=== PATIENT | female | born 1935 | race Hispanic/Latino ===

== ENCOUNTER 2017-09-22 13:16 | Emergency (ER) | payer MEDICARE, OTHER ==
[2017-09-22 13:24] VITALS: BP 158/77; PULSE 83; RESP 16; TEMP 98.1; O2SAT 95
--- NOTE | 2017-09-22 15:31 | ED PDOC ---
Lower Extremity Pain/Injury Time Seen by Provider: 09/22/17 13:36 Chief Complaint (Nursing): Lower Extremity Problem/Injury Chief Complaint (Provider): Right knee pain History Per: Patient History/Exam Limitations: no limitations Onset/Duration Of Symptoms: Days Current Symptoms Are (Timing): Still Present Severity: Moderate Pain Scale Rating Of: 5 Additional Complaint(s): Pt states a month ago she was walking down the steps and had a sharp pain in the right knee. PT states she was still able to walk and it got better. Pt states the same thing happened last night but now she cannot weight bear. Pt states it is not because of the pain but because her knee feels weak. Denies numbness/tingling. PT took aleve at home last night and states it didn't help much but she does not want anything in ER. Past Medical History Vital Signs: Last Vital Signs Temp 98.1 F 09/22/17 13:22 Pulse 83 09/22/17 13:22 Resp 16 09/22/17 13:22 BP 158/77 H 09/22/17 13:22 Pulse Ox 95 09/22/17 13:22 - Medical History PMH: Hypercholesterolemia Denies: Chronic Kidney Disease - Family History Family History: States: Unknown Family Hx - Home Medications Home Medications: Ambulatory Orders Medication Instructions Recorded Rosuvastatin Calcium [Crestor] 1 tab PO DAILY 07/06/17 - Allergies Allergies/Adverse Reactions: Allergies Allergy/AdvReac Type Severity Reaction Status Date / Time No Known Allergies Allergy Verified 09/22/17 13:21 - ECG O2 Sat by Pulse Oximetry: 95 Disposition - Clinical Impression Clinical Impression: Arthritis of knee - Patient ED Disposition Is Patient to be Admitted: No Counseled Patient/Family Regarding: Diagnosis, Need For Followup - Disposition Referrals: Christophe Varghese III, MD [Staff Provider] - Disposition: Routine/Home Disposition Time: 15:29 Condition: GOOD Instructions: Arthritis (ED)
--- NOTE | 2017-09-22 19:32 | RAD ---
PROCEDURE: Right Knee Radiographs. HISTORY: pain COMPARISON: None. FINDINGS: BONES: No acute fracture or destructive bony lesion identified. JOINTS: Joint space narrowing, articular cortical sclerosis and osteophyte formation are identified in all 3 compartments compatible osteoarthritis. No dislocation or subluxation. JOINT EFFUSION: None. OTHER FINDINGS: None. IMPRESSION: Osteoarthritis right knee, tricompartmental. No acute fracture or dislocation identified.
== END 2017-09-22 17:26 | disposition home or self-care (01) ==
LOC: H.ER 13:16
DX: M17.11 Unilateral primary osteoarthritis, right knee (principal); E78.00 Pure hypercholesterolemia, unspecified

== ENCOUNTER 2017-12-24 16:14 | Inpatient (IN) | payer MEDICARE, OTHER ==
--- NOTE | 2017-12-24 17:00 | ED PDOC ---
HPI: Trauma/Fall - HPI Time Seen by Provider: 12/24/17 16:32 Chief Complaint (Nursing): Trauma Chief Complaint (Provider): Trauma History Per: Patient History/Exam Limitations: no limitations Onset/Duration Of Symptoms: Days (x1) Additional Complaint(s): 82 y/o female with a pmhx of high cholesterol, who presents to the ED for evaluation s/p fall prior to arrival. Patient states she tripped on a step at home and fell on her right side with most of her weight landing on her right elbow. She says the pain is constant, sharp, exacerbated by movement of the elbow, and associated with swelling and states she iced it before arrival. Patient also reports right shoulder and right forehead pain. Denies LOC, numbness, focal weakness, or other injuries. PMD: Dr. Vasquez Past Medical History Reviewed: Historical Data, Nursing Documentation, Vital Signs Vital Signs: Last Vital Signs Temp 98.8 F 12/24/17 16:15 Pulse 88 12/24/17 16:15 Resp 18 12/24/17 16:15 BP 162/84 H 12/24/17 16:15 Pulse Ox 99 12/24/17 16:15 - Medical History PMH: Hypercholesterolemia Denies: Chronic Kidney Disease - Surgical History Other surgeries: Cataracts, left elbow surgery - Family History Family History: States: Unknown Family Hx - Social History Current smoker - smoking cessation education provided: No Alcohol: None - Home Medications Home Medications: Ambulatory Orders Medication Instructions Recorded Rosuvastatin Calcium [Crestor] 1 tab PO DAILY 07/06/17 - Allergies Allergies/Adverse Reactions: Allergies Allergy/AdvReac Type Severity Reaction Status Date / Time No Known Allergies Allergy Verified 09/22/17 13:21 Review of Systems ROS Statement: Except As Marked, All Systems Reviewed And Found Negative Musculoskeletal: Positive for: Shoulder Pain, Arm Pain Neurological: Positive for: Headache. Negative for: Weakness, Numbness Physical Exam - Reviewed Nursing Documentation Reviewed: Yes Vital Signs Reviewed: Yes - Physical Exam Appears: Positive for: Non-toxic, In Acute Distress (mild painful distress) Head Exam: Positive for: NORMOCEPHALIC. Negative for: ATRAUMATIC (subtle erythema to right eyebrow and forehead, no hematoma) Skin: Positive for: Warm, Dry Eye Exam: Positive for: EOMI, PERRL ENT: Negative for: Pharyngeal Erythema, Tonsillar Exudate Neck: Positive for: Painless ROM, Supple Cardiovascular/Chest: Positive for: Regular Rate, Rhythm. Negative for: Murmur Respiratory: Positive for: Normal Breath Sounds. Negative for: Wheezing Gastrointestinal/Abdominal: Positive for: Soft. Negative for: Tenderness Back: Positive for: Normal Inspection. Negative for: Decreased ROM Extremity: Positive for: Normal ROM (right elbow held in flexion, able to extend and flex right elbow however extension elicits pain, right shoulder full ROM), Swelling (diffuse edema of the right elbow with hematoma and superficial abrasions, hemostatic), Other (RUE distal neurovascular intact; right shoulder no swelling or tenderness) Lymphatic: Negative for: Adenopathy Neurologic/Psych: Positive for: Alert. Negative for: Motor/Sensory Deficits - ECG O2 Sat by Pulse Oximetry: 99 (RA) Pulse Ox Interpretation: Normal Medical Decision Making Medical Decision Making: Time: 16:40 Initial Impression: Head injury and right elbow injury s/p fall. Differential diagnoses include, but are not limited to elbow fracture, elbow contusion, shoulder strain, and traumatic brain injury Plan: --CT Head w/o contrast --Morphine 2mg IM --Tylenol 975mg PO --X-Ray right elbow --X-Ray right shoulder --Reevaluation Accession No. : [id number] Patient Name / ID : ARETHA LAN / [id number] Exam Date : 12/24/2017 16:54:45 ( Approved ) Study Comment : Sex / Age : F / 82Y Creator : derik zhang Dictator : Randy Cabello MD Web Content Director : Agent Producer : Randy Cabello MD Approver2 : Report Date : 12/24/2017 17:14:29 My Comment : PROCEDURE: Radiographs of the right elbow. HISTORY: right shoulder pain s/p fall COMPARISON: No prior. FINDINGS: BONES: Comminuted fracture of the proximal ulna with avulsion of the olecranon JOINTS: Normal. No osteoarthritis. SOFT TISSUES: Soft tissue swelling attests to the acuity of the fracture. JOINT EFFUSION: None OTHER FINDINGS: None. IMPRESSION: Acute and comminuted fracture of the proximal ulna. Accession No. : [id number] Patient Name / ID : ARETHA LAN / [id number] Exam Date : 12/24/2017 17:17:12 ( Approved ) Study Comment : Sex / Age : F / 82Y Creator : Randy Cabello MD Dictator : Randy Cabello MD Web Content Director : Agent Producer : Randy Cabello MD Approver2 : Report Date : 12/24/2017 18:08:01 My Comment : PROCEDURE: CT HEAD WITHOUT CONTRAST. HISTORY: head injury COMPARISON: 08/14/2014 TECHNIQUE: Axial computed tomography images were obtained through the head/brain without intravenous contrast. Coronal and sagittal reconstructed images. Radiation dose: Total exam DLP = 739.31 mGy-cm. This CT exam was performed using one or more of the following dose reduction techniques: Automated exposure control, adjustment of the mA and/or kV according to patient size, and/or use of iterative reconstruction technique. FINDINGS: HEMORRHAGE: No intracranial hemorrhage. BRAIN: No mass effect or edema. No atrophy or chronic microvascular ischemic changes. VENTRICLES: Unremarkable. No hydrocephalus. CALVARIUM: Unremarkable. PARANASAL SINUSES: Unremarkable as visualized. No significant inflammatory changes. MASTOID AIR CELLS: Unremarkable as visualized. No inflammatory changes. OTHER FINDINGS: None. IMPRESSION: No acute intracranial abnormalities. No significant findings to account for the clinical presentation. No significant interval change compared to the prior examination(s). 6p JAZMÍN Guzman. Pt will be splinted and admitted to PMD Dr Vasquez. JAZMÍN Smith resident admitting for Dr Vasquez. JAZMÍN pt and family findings and plan of care. Scribe Attestation: Documented by Mendez Jaimes, acting as a scribe for Ava Mondragon MD. Provider Scribe Attestation: All medical record entries made by the Scribe were at my direction and personally dictated by me. I have reviewed the chart and agree that the record accurately reflects my personal performance of the history, physical exam, medical decision making, and the department course for this patient. I have also personally directed, reviewed, and agree with the discharge instructions and disposition. Disposition - Clinical Impression Clinical Impression: Displaced fracture of proximal end of ulna Counseled Patient/Family Regarding: Studies Performed, Diagnosis - Disposition Disposition Time: 18:00 Condition: FAIR Forms: [employer] ([place]) - Pt Status Changed To: Hospital Disposition Of: Inpatient - Admit Certification Admit to Inpatient:: After my assessment, the patient will require hospitalization for at least two midnights. This is because of the severity of symptoms shown, intensity of services needed, and/or the medical risk in this patient being treated as an outpatient. - POA Present On Arrival: Falls Or Trauma
--- NOTE | 2017-12-24 17:58 | RAD ---
PROCEDURE: Radiographs of the right elbow. HISTORY: right shoulder pain s/p fall COMPARISON: No prior. FINDINGS: BONES: Comminuted fracture of the proximal ulna with avulsion of the olecranon JOINTS: Normal. No osteoarthritis. SOFT TISSUES: Soft tissue swelling attests to the acuity of the fracture. JOINT EFFUSION: None OTHER FINDINGS: None. IMPRESSION: Acute and comminuted fracture of the proximal ulna.
--- NOTE | 2017-12-24 17:59 | RAD ---
PROCEDURE: Radiographs of the Right Shoulder HISTORY: RIGHT elbow pain s/p fall COMPARISON: No prior. FINDINGS: BONES: Normal. No fracture. JOINTS: Preserved glenohumeral relationship, acromioclavicular degenerative change: Moderate SOFT TISSUES: Normal. OTHER FINDINGS: None. IMPRESSION: No acute findings related to/accounting for the clinical presentation.
--- NOTE | 2017-12-24 18:09 | CT ---
PROCEDURE: CT HEAD WITHOUT CONTRAST. HISTORY: head injury COMPARISON: 08/14/2014 TECHNIQUE: Axial computed tomography images were obtained through the head/brain without intravenous contrast. Coronal and sagittal reconstructed images. Radiation dose: Total exam DLP = 739.31 mGy-cm. This CT exam was performed using one or more of the following dose reduction techniques: Automated exposure control, adjustment of the mA and/or kV according to patient size, and/or use of iterative reconstruction technique. FINDINGS: HEMORRHAGE: No intracranial hemorrhage. BRAIN: No mass effect or edema. No atrophy or chronic microvascular ischemic changes. VENTRICLES: Unremarkable. No hydrocephalus. CALVARIUM: Unremarkable. PARANASAL SINUSES: Unremarkable as visualized. No significant inflammatory changes. MASTOID AIR CELLS: Unremarkable as visualized. No inflammatory changes. OTHER FINDINGS: None. IMPRESSION: No acute intracranial abnormalities. No significant findings to account for the clinical presentation. No significant interval change compared to the prior examination(s).
[2017-12-24 19:05] LABS: BASO # 0.1 K/uL (0.0-0.2); BASO % 0.9 % (0.0-2.0); EOS # 0.1 K/uL (0.0-0.7); EOS % 1.5 % (0.0-4.0); HEMOGLOBIN 10.9 g/dL (12.0-16.0); LYMPH # 1.6 K/uL (1.0-4.3); LYMPH % 17.8 % (20.0-40.0); MEAN CELL VOLUME 85.1 fl (81.0-99.0); MEAN CORPUSCULAR HEMOGLOBIN 27.8 pg (27.0-31.0); MEAN CORPUSCULAR HGB CONC 32.6 g/dL (33.0-37.0); MEAN PLATELET VOLUME 9.2 fl (7.2-11.7); MONO # 0.6 K/uL (0.0-0.8); MONO % 6.2 % (0.0-10.0); NEUT # 6.5 K/uL (1.8-7.0); NEUT % 73.6 % (50.0-75.0); RBC 3.93 Mil/uL (3.80-5.20); RED CELL DISTRIBUTION WIDTH 15.6 % (11.5-14.5); WHITE BLOOD COUNT 8.9 K/uL (4.8-10.8)
[2017-12-24 19:10] LABS: INR 1.3 (0.9-1.2); PARTIAL THROMBOPLASTIN TIME 35.4 Seconds (25.6-37.1)
[2017-12-24 19:15] LABS: ALBUMIN 4.1 g/dL (3.5-5.0); ALT/SGPT 23 U/L (9-52); AST/SGOT 35 U/L (14-36); BLOOD UREA NITROGEN 33 mg/dl (7-17); CALCIUM 9.3 mg/dL (8.4-10.2); GFR AFRICAN-AMERICAN > 60; GFR NON-AFRICAN AMERICAN > 60
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
[2017-12-24] MEDS ORDERED: Oxycodone/Acetaminophen 5/325 mg Tab PO PRN (20:14)
[2017-12-24 20:53] LABS: SQUAMOUS EPITHIAL 2 /hpf (0-5); URINE BACTERIA RARE (<OCC); URINE BILIRUBIN NEGATIVE (NEGATIVE); URINE BLOOD NEGATIVE (NEGATIVE); URINE CLARITY SLIGHTY-CLOUDY (Clear); URINE COLOR YELLOW (YELLOW); URINE GLUCOSE (UA) NEG (Normal); URINE LEUKOCYTE ESTERASE MOD Leu/uL (Negative); URINE PROTEIN NEGATIVE (NEGATIVE); URINE UROBILINOGEN 0.2-1.0 mg/dL (0.2-1.0)
[2017-12-25 06:59] LABS: INR 1.4 (0.9-1.2); PARTIAL THROMBOPLASTIN TIME 33.6 Seconds (25.6-37.1); PROTHROMBIN TIME 15.1 Seconds (9.8-13.1)
[2017-12-25 07:00] LABS: ALB/GLOB RATIO 0.9 (1.0-2.1); ALBUMIN 3.7 g/dL (3.5-5.0); ALT/SGPT 27 U/L (9-52); AST/SGOT 31 U/L (14-36); BASO % 0.5 % (0.0-2.0); BLOOD UREA NITROGEN 22 mg/dl (7-17); CALCIUM 9.4 mg/dL (8.4-10.2); EOS # 0.2 K/uL (0.0-0.7); EOS % 2.1 % (0.0-4.0); GFR AFRICAN-AMERICAN > 60; GFR NON-AFRICAN AMERICAN > 60; HEMOGLOBIN 10.6 g/dL (12.0-16.0); LYMPH # 1.5 K/uL (1.0-4.3); LYMPH % 18.1 % (20.0-40.0); MEAN CELL VOLUME 85.8 fl (81.0-99.0); MEAN CORPUSCULAR HEMOGLOBIN 27.8 pg (27.0-31.0); MEAN CORPUSCULAR HGB CONC 32.5 g/dL (33.0-37.0); MEAN PLATELET VOLUME 9.7 fl (7.2-11.7); MONO # 0.6 K/uL (0.0-0.8); MONO % 6.8 % (0.0-10.0); NEUT # 5.9 K/uL (1.8-7.0); NEUT % 72.5 % (50.0-75.0); NRBC % 0.2 % (0.0-0.0); RBC 3.81 Mil/uL (3.80-5.20); RED CELL DISTRIBUTION WIDTH 15.6 % (11.5-14.5); WHITE BLOOD COUNT 8.2 K/uL (4.8-10.8)
--- NOTE | 2017-12-25 08:25 | RAD ---
HISTORY: Fall COMPARISON: 07/08/2017. FINDINGS: LUNGS: The lungs are well inflated. There is linear scarring in the right lower lobe. No focal consolidation PLEURA: No significant pleural effusion identified, no pneumothorax apparent. CARDIOVASCULAR: Normal. OSSEOUS STRUCTURES: No significant abnormalities. VISUALIZED UPPER ABDOMEN: Normal. OTHER FINDINGS: Again seen are multiple surgical clips in the right axilla. . IMPRESSION: No active pulmonary disease. No acute findings.
[2017-12-25] MEDS ORDERED: Enoxaparin 40 mg Syringe SC SCH (09:00)
--- NOTE | 2017-12-25 09:09 | CP.PCM.PN ---
<Herlinda Alston - Last Filed: 12/25/17 10:02> Subjective - Date & Time of Evaluation Date of Evaluation: 12/25/17 Time of Evaluation: 07:20 - Subjective Subjective: Patient seen and examined this morning at bedside during rounding, reports feeling better, states minimal pain in her R shoulder and elbow that is well controlled with medications. Afebrile, no chest pain, sob, headaches, blurred vision, dizziness. No urinary symptoms. Objective - Vital Signs/Intake and Output Vital Signs (last 24 hours): Temp Pulse Resp BP Pulse Ox 98.0 F 83 18 138/79 94 L 12/25/17 08:18 12/25/17 08:18 12/25/17 08:18 12/25/17 08:18 12/25/17 08:18 - Medications Medications: Current Medications Acetaminophen (Tylenol 325mg Tab) 650 mg PO Q6 PRN PRN Reason: Pain, Mild (1-3) Acetaminophen (Tylenol 325mg Tab) 650 mg PO Q6 PRN PRN Reason: Fever >100.4 F Atorvastatin Calcium (Lipitor) 10 mg PO DAILY SELINA Morphine Sulfate (Morphine) 2 mg IVP Q4 PRN PRN Reason: Pain, severe (8-10) Ondansetron HCl (Zofran Inj) 4 mg IVP Q6 PRN PRN Reason: Nausea/Vomiting Oxycodone/Acetaminophen (Percocet 5/325 Mg Tab) 1 tab PO Q4 PRN PRN Reason: Pain, moderate (4-7) Stop: 12/27/17 20:15 - Labs Labs: 12/25/17 05:47 12/25/17 05:47 PT 15.1 Seconds (9.8-13.1) H 12/25/17 05:47 INR 1.4 (0.9-1.2) H 12/25/17 05:47 APTT 33.6 Seconds (25.6-37.1) 12/25/17 05:47 - Constitutional Appears: No Acute Distress - Head Exam Head Exam: NORMAL INSPECTION - Eye Exam Eye Exam: EOMI, PERRL - Respiratory Exam Respiratory Exam: Clear to Ausculation Bilateral, NORMAL BREATHING PATTERN - GI/Abdominal Exam GI & Abdominal Exam: Soft, Normal Bowel Sounds. absent: Distended, Tenderness - Extremities Exam Additional comments: R arm splint noted, mild swelling on R hand. - Neurological Exam Neurological Exam: Alert, Awake, Oriented x3 - Skin Skin Exam: Dry, Warm Assessment and Plan - Assessment and Plan (Free Text) Assessment: 82 yo F patient with PMhx/o Right breast cancer, s/p mastectomy 22 years ago, and hyperlipidemia admitted for right elbow fracture. 1- Right elbow fracture - s/p fall at home - XR right elbow: Acute and comminuted fracture of the proximal ulna. - Dr Varghese Ortho on board: possible surgery after medical clearance, recs appreciated. -Cardio Dr Monterroso input appreciated: - Pt cleared for surgery. - Right Shoulder XR: normal - CXR no active pulmonary disease. - Patient hemodynamically stable, cleared for surgery. 2- Fall at home - With secondary right elbow fracture, shoulder contusion and forehead contusion - CT head w/o contrast: No acute intracranial abnormalities. No significant findings to account for the clinical presentation. No significant interval change compared to the prior examination(s). 3- Hyperlipidemia - continue Crestor 4- DVT Prophylaxis - scd: waiting surgery. <Felix Vasquez - Last Filed: 12/28/17 06:46> Objective - Vital Signs/Intake and Output Vital Signs (last 24 hours): Temp Pulse Resp BP Pulse Ox 98.8 F 92 H 95 H 133/70 99 12/28/17 05:00 12/28/17 05:00 12/28/17 05:00 12/28/17 05:00 12/28/17 01:00 Intake and Output: 12/27/17 12/28/17 18:59 06:59 Intake Total 1000 Balance 1000 - Medications Medications: Current Medications Acetaminophen (Tylenol 325mg Tab) 650 mg PO Q6 PRN PRN Reason: Pain, Mild (1-3) Acetaminophen (Tylenol 325mg Tab) 650 mg PO Q6 PRN PRN Reason: Fever >100.4 F Atorvastatin Calcium (Lipitor) 10 mg PO DAILY@1700 [facility] Last Admin: 12/27/17 16:41 Dose: 10 mg Heparin Sodium (Porcine) (Heparin) 5,000 units SC Q12 SELINA PRN Reason: Protocol Last Admin: 12/27/17 21:12 Dose: 5,000 units Morphine Sulfate (Morphine) 2 mg IVP Q4 PRN PRN Reason: Pain, severe (8-10) Last Admin: 12/28/17 01:53 Dose: 2 mg Ondansetron HCl (Zofran Inj) 4 mg IVP Q6 PRN PRN Reason: Nausea/Vomiting - Labs Labs: 12/27/17 06:10 12/28/17 05:25 PT 15.1 Seconds (9.8-13.1) H 12/26/17 05:40 INR 1.4 (0.9-1.2) H 12/26/17 05:40 APTT 32.7 Seconds (25.6-37.1) 12/26/17 05:40 Attending/Attestation - Attestation I have personally seen and examined this patient.: Yes I have fully participated in the care of the patient.: Yes I have reviewed all pertinent clinical information, including history, physical exam and plan: Yes
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
--- NOTE | 2017-12-25 10:42 | CARD ---
APPROVED REPORT EKG Measurement Heart [id number] <Conclusion> Normal sinus rhythm Minimal voltage criteria for LVH, may be normal variant Borderline ECG
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
[2017-12-25 16:31] LABS: INR 1.4 (0.9-1.2); PARTIAL THROMBOPLASTIN TIME 34.9 Seconds (25.6-37.1); PROTHROMBIN TIME 15.4 Seconds (9.8-13.1)
[2017-12-25] MEDS ORDERED: Phytonadione 10 mg/ml Inj (Adult) SC ONE (21:06)
[2017-12-26 06:57] LABS: MEAN CELL VOLUME 85.1 fl (81.0-99.0); MEAN CORPUSCULAR HGB CONC 31.7 g/dL (33.0-37.0); RBC 4.08 Mil/uL (3.80-5.20); RED CELL DISTRIBUTION WIDTH 15.5 % (11.5-14.5); WHITE BLOOD COUNT 8.4 K/uL (4.8-10.8)
[2017-12-26 07:12] LABS: INR 1.4 (0.9-1.2); PARTIAL THROMBOPLASTIN TIME 32.7 Seconds (25.6-37.1); PROTHROMBIN TIME 15.1 Seconds (9.8-13.1)
[2017-12-26 07:16] LABS: BLOOD UREA NITROGEN 20 mg/dl (7-17); CALCIUM 8.9 mg/dL (8.4-10.2); GFR AFRICAN-AMERICAN > 60; GFR NON-AFRICAN AMERICAN > 60
[2017-12-26] MEDS ORDERED: Phytonadione 10 mg/ml Inj (Adult) SC ONE (08:22)
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
--- NOTE | 2017-12-26 09:43 | CP.PCM.PN ---
Addendum entered and electronically signed by Herlinda Alston MD 12/26/17 16: 20: Asymptomatic prolonged INR, likely 2/2 to prolonged statin use. Patient s/p FFP 1 unit and vit K 10 mg IM once Patient cleared by Heme/Onc for surgery. Original Note: <Herlinda Alston - Last Filed: 12/26/17 12:58> Subjective - Date & Time of Evaluation Date of Evaluation: 12/26/17 Time of Evaluation: 09:43 - Subjective Subjective: Patient seen and examined this morning at bedside during rounding, reports feeling better, moderate pain in R arm. Could not slept well last night due to pain. Afebrile, no chest pain, sob, headaches, blurred vision, dizziness. No urinary symptoms. Scheduled for surgery tomorrow in the morning. Objective - Vital Signs/Intake and Output Vital Signs (last 24 hours): Temp Pulse Resp BP Pulse Ox 98.0 F 87 20 147/77 94 L 12/26/17 07:53 12/26/17 07:53 12/26/17 07:53 12/26/17 07:53 12/26/17 07:53 - Medications Medications: Current Medications Acetaminophen (Tylenol 325mg Tab) 650 mg PO Q6 PRN PRN Reason: Pain, Mild (1-3) Acetaminophen (Tylenol 325mg Tab) 650 mg PO Q6 PRN PRN Reason: Fever >100.4 F Atorvastatin Calcium (Lipitor) 10 mg PO DAILY@1700 [facility] Last Admin: 12/25/17 17:54 Dose: 10 mg Diphenhydramine HCl (Benadryl) 25 mg PO HS ONE Stop: 12/26/17 21:01 Heparin Sodium (Porcine) (Heparin) 5,000 units SC Q12 SELINA PRN Reason: Protocol Last Admin: 12/25/17 21:44 Dose: 5,000 units Morphine Sulfate (Morphine) 2 mg IVP Q4 PRN PRN Reason: Pain, severe (8-10) Ondansetron HCl (Zofran Inj) 4 mg IVP Q6 PRN PRN Reason: Nausea/Vomiting Oxycodone/Acetaminophen (Percocet 5/325 Mg Tab) 1 tab PO Q4 PRN PRN Reason: Pain, moderate (4-7) Stop: 12/27/17 20:15 - Labs Labs: 12/26/17 05:40 12/26/17 05:40 PT 15.1 Seconds (9.8-13.1) H 12/26/17 05:40 INR 1.4 (0.9-1.2) H 12/26/17 05:40 APTT 32.7 Seconds (25.6-37.1) 12/26/17 05:40 - Constitutional Appears: No Acute Distress - Head Exam Head Exam: NORMAL INSPECTION - Eye Exam Eye Exam: EOMI, PERRL - Respiratory Exam Respiratory Exam: Clear to Ausculation Bilateral, NORMAL BREATHING PATTERN - Cardiovascular Exam Cardiovascular Exam: REGULAR RHYTHM, +S1, +S2 - GI/Abdominal Exam GI & Abdominal Exam: Soft, Normal Bowel Sounds. absent: Distended, Tenderness - Extremities Exam Extremities Exam: absent: Calf Tenderness Additional comments: Splint in place, intact, clean. Good ROM of fingers, mild hand edema, sensation intact, radial pulse present. - Neurological Exam Neurological Exam: Alert, Awake, Oriented x3 - Psychiatric Exam Psychiatric exam: Normal Affect - Skin Skin Exam: Dry, Warm Assessment and Plan - Assessment and Plan (Free Text) Assessment: 82 yo F patient with PMhx/o Right breast cancer, s/p mastectomy 22 years ago, and hyperlipidemia admitted for right elbow fracture. 1- Right elbow fracture - s/p fall at home - XR right elbow: Acute and comminuted fracture of the proximal ulna. - Dr Varghese Ortho on board - scheduled for repair 12/27/17 at 7:45am -Cardio Dr Monterroso input appreciated: - Pt cleared for surgery. - Right Shoulder XR: normal - CXR no active pulmonary disease. - Patient hemodynamically stable, cleared for surgery. - NPO after midnight. 2- Fall at home - With secondary right elbow fracture, shoulder contusion and forehead contusion - CT head w/o contrast: No acute intracranial abnormalities. No significant findings to account for the clinical presentation. No significant interval change compared to the prior examination(s). 3- Hyperlipidemia - continue Crestor 4- DVT Prophylaxis - scd: waiting surgery. <Felix Vasquez - Last Filed: 12/28/17 06:47> Objective - Vital Signs/Intake and Output Vital Signs (last 24 hours): Temp Pulse Resp BP Pulse Ox 98.8 F 92 H 95 H 133/70 99 04/27/18 05:00 12/28/17 05:00 12/28/17 05:00 12/28/17 05:00 12/28/17 01:00 Intake and Output: 12/27/17 12/28/17 18:59 06:59 Intake Total 1000 Balance 1000 - Medications Medications: Current Medications Acetaminophen (Tylenol 325mg Tab) 650 mg PO Q6 PRN PRN Reason: Pain, Mild (1-3) Acetaminophen (Tylenol 325mg Tab) 650 mg PO Q6 PRN PRN Reason: Fever >100.4 F Atorvastatin Calcium (Lipitor) 10 mg PO DAILY@1700 [facility] Last Admin: 12/27/17 16:41 Dose: 10 mg Heparin Sodium (Porcine) (Heparin) 5,000 units SC Q12 SELINA PRN Reason: Protocol Last Admin: 12/27/17 21:12 Dose: 5,000 units Morphine Sulfate (Morphine) 2 mg IVP Q4 PRN PRN Reason: Pain, severe (8-10) Last Admin: 12/28/17 01:53 Dose: 2 mg Ondansetron HCl (Zofran Inj) 4 mg IVP Q6 PRN PRN Reason: Nausea/Vomiting - Labs Labs: 12/27/17 06:10 12/28/17 05:25 PT 15.1 Seconds (9.8-13.1) H 12/26/17 05:40 INR 1.4 (0.9-1.2) H 12/26/17 05:40 APTT 32.7 Seconds (25.6-37.1) 12/26/17 05:40 Attending/Attestation - Attestation I have personally seen and examined this patient.: Yes I have fully participated in the care of the patient.: Yes I have reviewed all pertinent clinical information, including history, physical exam and plan: Yes
--- NOTE | 2017-12-26 09:45 | CP.PCM.PN ---
Subjective - Date & Time of Evaluation Date of Evaluation: 12/26/17 Time of Evaluation: 08:15 - Subjective Subjective: NO CHEST PAIN OR SOB Objective - Vital Signs/Intake and Output Vital Signs (last 24 hours): Temp Pulse Resp BP Pulse Ox 98.0 F 87 20 147/77 94 L 12/26/17 07:53 12/26/17 07:53 12/26/17 07:53 12/26/17 07:53 12/26/17 07:53 - Medications Medications: Current Medications Acetaminophen (Tylenol 325mg Tab) 650 mg PO Q6 PRN PRN Reason: Pain, Mild (1-3) Acetaminophen (Tylenol 325mg Tab) 650 mg PO Q6 PRN PRN Reason: Fever >100.4 F Atorvastatin Calcium (Lipitor) 10 mg PO DAILY@1700 [facility] Last Admin: 12/25/17 17:54 Dose: 10 mg Diphenhydramine HCl (Benadryl) 25 mg PO HS ONE Stop: 12/26/17 21:01 Heparin Sodium (Porcine) (Heparin) 5,000 units SC Q12 SELINA PRN Reason: Protocol Last Admin: 12/25/17 21:44 Dose: 5,000 units Morphine Sulfate (Morphine) 2 mg IVP Q4 PRN PRN Reason: Pain, severe (8-10) Ondansetron HCl (Zofran Inj) 4 mg IVP Q6 PRN PRN Reason: Nausea/Vomiting Oxycodone/Acetaminophen (Percocet 5/325 Mg Tab) 1 tab PO Q4 PRN PRN Reason: Pain, moderate (4-7) Stop: 12/27/17 20:15 - Labs Labs: 12/26/17 05:40 12/26/17 05:40 PT 15.1 Seconds (9.8-13.1) H 12/26/17 05:40 INR 1.4 (0.9-1.2) H 12/26/17 05:40 APTT 32.7 Seconds (25.6-37.1) 12/26/17 05:40 - Respiratory Exam Respiratory Exam: Clear to Ausculation Bilateral - Cardiovascular Exam Cardiovascular Exam: REGULAR RHYTHM, +S1, +S2 - Extremities Exam Additional comments: NO LE EDEMA Assessment and Plan - Assessment and Plan (Free Text) Assessment: FALL WITH RIGHT ELBOW FRACTURE HYPERLIPIDEMIA Plan: CONTINUE ATORVASTATIN PATIENT IS CLEARED FROM THE CARDIAC VIEWPOINT FOR ORTHOPEDIC SURGERY
--- NOTE | 2017-12-26 13:11 | CP.PCM.PN ---
Subjective - Date & Time of Evaluation Date of Evaluation: 12/26/17 Time of Evaluation: 13:10 - Subjective Subjective: Patient seen and examined at bedside comfortable. Pain well controlled. No new complaints. Objective - Vital Signs/Intake and Output Vital Signs (last 24 hours): Temp Pulse Resp BP Pulse Ox 98.0 F 87 20 147/77 94 L 12/26/17 07:53 12/26/17 07:53 12/26/17 07:53 12/26/17 07:53 12/26/17 07:53 - Medications Medications: Current Medications Acetaminophen (Tylenol 325mg Tab) 650 mg PO Q6 PRN PRN Reason: Pain, Mild (1-3) Acetaminophen (Tylenol 325mg Tab) 650 mg PO Q6 PRN PRN Reason: Fever >100.4 F Atorvastatin Calcium (Lipitor) 10 mg PO DAILY@1700 [facility] Last Admin: 12/25/17 17:54 Dose: 10 mg Diphenhydramine HCl (Benadryl) 25 mg PO HS ONE Stop: 12/26/17 21:01 Morphine Sulfate (Morphine) 2 mg IVP Q4 PRN PRN Reason: Pain, severe (8-10) Ondansetron HCl (Zofran Inj) 4 mg IVP Q6 PRN PRN Reason: Nausea/Vomiting Oxycodone/Acetaminophen (Percocet 5/325 Mg Tab) 1 tab PO Q4 PRN PRN Reason: Pain, moderate (4-7) Stop: 12/27/17 20:15 - Labs Labs: 12/26/17 05:40 12/26/17 05:40 PT 15.1 Seconds (9.8-13.1) H 12/26/17 05:40 INR 1.4 (0.9-1.2) H 12/26/17 05:40 APTT 32.7 Seconds (25.6-37.1) 12/26/17 05:40 - Extremities Exam Additional comments: RUE: Long arm posterior splint intact, mild swelling to hand sensation and motor intact MN/UN/RN radial pulse intact compartments soft Assessment and Plan (1) Displaced fracture of olecranon process of right ulna with intra-articular extension Assessment & Plan: -PT/OT NWB RUE, in sling -pain control -Hematology consult appreciated, patient will receive Vit K and FFP for coagulation abnormality correction -medical and cardiac clearance appreciated -NPO pMN -OR tomorrow AM for R damir ORIF -above d/w Dr. Varghese in agreement Status: Acute
[2017-12-27 06:47] LABS: BASO % 0.6 % (0.0-2.0); EOS # 0.2 K/uL (0.0-0.7); HEMOGLOBIN 10.2 g/dL (12.0-16.0); LYMPH # 1.7 K/uL (1.0-4.3); LYMPH % 21.9 % (20.0-40.0); MEAN CELL VOLUME 83.9 fl (81.0-99.0); MEAN CORPUSCULAR HGB CONC 33.3 g/dL (33.0-37.0); MONO # 0.7 K/uL (0.0-0.8); MONO % 8.3 % (0.0-10.0); NEUT # 5.2 K/uL (1.8-7.0); NEUT % 66.2 % (50.0-75.0); RBC 3.64 Mil/uL (3.80-5.20); RED CELL DISTRIBUTION WIDTH 15.5 % (11.5-14.5); WHITE BLOOD COUNT 7.9 K/uL (4.8-10.8)
[2017-12-27] MEDS ORDERED: Bupivacaine 0.5% Inj(30mL) ONE (07:17)
[2017-12-27] MEDS ORDERED: methylPREDNISolone Depo 80 mg/ml Inj ONE (07:17)
[2017-12-27] MEDS ORDERED: Bacitracin Ointment 30 GM TUBE ONE (07:18)
[2017-12-27] MEDS ORDERED: Thrombin Topical 5,000 Int Units Spray Kit ONE (07:18)
[2017-12-27] MEDS ORDERED: Absorbable Gelatin Sponge Size 12-7 ONE (07:19)
[2017-12-27] MEDS ORDERED: Succinylcholine 200 mg/10 ml Inj IV ONE (07:23)
[2017-12-27] MEDS ORDERED: Etomidate 20 mg/10ml Inj IV ONE (07:24)
[2017-12-27 07:38] LABS: ALB/GLOB RATIO 0.9 (1.0-2.1); ALBUMIN 3.9 g/dL (3.5-5.0); ALT/SGPT 31 U/L (9-52); AST/SGOT 43 U/L (14-36); BLOOD UREA NITROGEN 22 mg/dl (7-17); CALCIUM 9.4 mg/dL (8.4-10.2); GFR AFRICAN-AMERICAN > 60; GFR NON-AFRICAN AMERICAN > 60
--- NOTE | 2017-12-27 07:38 | CP.PCM.PN ---
Addendum entered and electronically signed by Herlinda Alston MD 12/27/17 14: 56: Patient seen and examined at bedside s/p ORIF R caronn, under General endo anesthesia procedure which she tolerated well, no pain at this time. Patient eating lunch. Breathing comfortably in RA, afebrile, no chest or abdominal pain. Incentive spirometry. Pain control: infraclavicular brachial plexus block. Original Note: <Herlinda Alston - Last Filed: 12/27/17 14:55> Subjective - Date & Time of Evaluation Date of Evaluation: 12/27/17 Time of Evaluation: 07:37 - Subjective Subjective: Patient seen and examined this morning at bedside during rounding, reports feeling well, moderate pain in R arm. Afebrile, no chest pain, sob, headaches. Going OR this morning. Objective - Vital Signs/Intake and Output Vital Signs (last 24 hours): Temp Pulse Resp BP Pulse Ox 98.5 F 91 H 18 156/79 H 95 12/27/17 00:00 12/27/17 00:00 12/27/17 00:00 12/26/17 16:52 12/27/17 00:00 - Medications Medications: Current Medications Acetaminophen (Tylenol 325mg Tab) 650 mg PO Q6 PRN PRN Reason: Pain, Mild (1-3) Acetaminophen (Tylenol 325mg Tab) 650 mg PO Q6 PRN PRN Reason: Fever >100.4 F Atorvastatin Calcium (Lipitor) 10 mg PO DAILY@1700 [facility] Last Admin: 12/26/17 16:46 Dose: 10 mg Morphine Sulfate (Morphine) 2 mg IVP Q4 PRN PRN Reason: Pain, severe (8-10) Ondansetron HCl (Zofran Inj) 4 mg IVP Q6 PRN PRN Reason: Nausea/Vomiting Oxycodone/Acetaminophen (Percocet 5/325 Mg Tab) 1 tab PO Q4 PRN PRN Reason: Pain, moderate (4-7) Stop: 12/27/17 20:15 - Labs Labs: 12/26/17 05:40 12/26/17 05:40 PT 15.1 Seconds (9.8-13.1) H 12/26/17 05:40 INR 1.4 (0.9-1.2) H 12/26/17 05:40 APTT 32.7 Seconds (25.6-37.1) 12/26/17 05:40 - Constitutional Appears: No Acute Distress - Eye Exam Eye Exam: EOMI, PERRL - Respiratory Exam Respiratory Exam: Clear to Ausculation Bilateral, NORMAL BREATHING PATTERN - Cardiovascular Exam Cardiovascular Exam: REGULAR RHYTHM. absent: Murmur - GI/Abdominal Exam GI & Abdominal Exam: Soft, Normal Bowel Sounds. absent: Distended - Extremities Exam Extremities Exam: absent: Calf Tenderness - Neurological Exam Neurological Exam: Alert, Awake, Oriented x3 - Psychiatric Exam Psychiatric exam: Normal Affect Assessment and Plan - Assessment and Plan (Free Text) Assessment: 82 yo F patient with PMhx/o Right breast cancer, s/p mastectomy 22 years ago, and hyperlipidemia admitted for right elbow fracture. 1- Right elbow fracture, going for repair today. - s/p fall at home - Dr Varghese Ortho on board -Cardio Dr Monterroso on board - Heme/onc Dr Bennett on board 2- Fall at home - With secondary right elbow fracture, shoulder contusion and forehead contusion - CT head w/o contrast: No acute intracranial abnormalities. No significant findings to account for the clinical presentation. No significant interval change compared to the prior examination(s). 3- Hyperlipidemia - continue Crestor 4- DVT Prophylaxis - SCD - prolonged PT/INR <Edis Moralez - Last Filed: 12/28/17 06:55> Objective - Vital Signs/Intake and Output Vital Signs (last 24 hours): Temp Pulse Resp BP Pulse Ox 98.8 F 92 H 95 H 133/70 99 12/28/17 05:00 12/28/17 05:00 12/28/17 05:00 12/28/17 05:00 12/28/17 01:00 Intake and Output: 12/27/17 12/28/17 18:59 06:59 Intake Total 1000 Balance 1000 - Medications Medications: Current Medications Acetaminophen (Tylenol 325mg Tab) 650 mg PO Q6 PRN PRN Reason: Pain, Mild (1-3) Acetaminophen (Tylenol 325mg Tab) 650 mg PO Q6 PRN PRN Reason: Fever >100.4 F Atorvastatin Calcium (Lipitor) 10 mg PO DAILY@1700 [facility] Last Admin: 12/27/17 16:41 Dose: 10 mg Heparin Sodium (Porcine) (Heparin) 5,000 units SC Q12 [facility] PRN Reason: Protocol Last Admin: 12/27/17 21:12 Dose: 5,000 units Morphine Sulfate (Morphine) 2 mg IVP Q4 PRN PRN Reason: Pain, severe (8-10) Last Admin: 12/28/17 01:53 Dose: 2 mg Ondansetron HCl (Zofran Inj) 4 mg IVP Q6 PRN PRN Reason: Nausea/Vomiting - Labs Labs: 12/27/17 06:10 12/28/17 05:25 PT 15.1 Seconds (9.8-13.1) H 12/26/17 05:40 INR 1.4 (0.9-1.2) H 12/26/17 05:40 APTT 32.7 Seconds (25.6-37.1) 12/26/17 05:40 Attending/Attestation - Attestation I have personally seen and examined this patient.: Yes I have fully participated in the care of the patient.: Yes I have reviewed all pertinent clinical information, including history, physical exam and plan: Yes
[2017-12-27] MEDS ORDERED: Ropivacaine 0.5% 30ML IV ONE (07:44)
[2017-12-27] MEDS ORDERED: Lactated Ringer's 1,000 ML IV ONE ×2 (07:50→09:00)
[2017-12-27] MEDS ORDERED: Midazolam 2 MG/2 ML VIAL ONE (07:55)
[2017-12-27] MEDS ORDERED: Rocuronium 10 mg/ml (5 ml) ONE ×2 (08:21→08:43)
[2017-12-27] MEDS ORDERED: Phenylephrine 10 mg/ml Inj ONE (08:38)
--- NOTE | 2017-12-27 08:56 | CP.PCM.PN ---
Subjective - Date & Time of Evaluation Date of Evaluation: 12/27/17 Time of Evaluation: 07:15 - Subjective Subjective: NO NEW COMPLAINTS Objective - Vital Signs/Intake and Output Vital Signs (last 24 hours): Temp Pulse Resp BP Pulse Ox 98.5 F 80 20 157/75 H 95 12/27/17 07:56 12/27/17 07:56 12/27/17 07:56 12/27/17 07:56 12/27/17 07:56 - Medications Medications: Current Medications Acetaminophen (Tylenol 325mg Tab) 650 mg PO Q6 PRN PRN Reason: Pain, Mild (1-3) Acetaminophen (Tylenol 325mg Tab) 650 mg PO Q6 PRN PRN Reason: Fever >100.4 F Atorvastatin Calcium (Lipitor) 10 mg PO DAILY@1700 [facility] Last Admin: 12/26/17 16:46 Dose: 10 mg Morphine Sulfate (Morphine) 2 mg IVP Q4 PRN PRN Reason: Pain, severe (8-10) Ondansetron HCl (Zofran Inj) 4 mg IVP Q6 PRN PRN Reason: Nausea/Vomiting Oxycodone/Acetaminophen (Percocet 5/325 Mg Tab) 1 tab PO Q4 PRN PRN Reason: Pain, moderate (4-7) Stop: 12/27/17 20:15 - Labs Labs: 12/27/17 06:10 12/27/17 06:10 PT 15.1 Seconds (9.8-13.1) H 12/26/17 05:40 INR 1.4 (0.9-1.2) H 12/26/17 05:40 APTT 32.7 Seconds (25.6-37.1) 12/26/17 05:40 - Respiratory Exam Respiratory Exam: Clear to Ausculation Bilateral - Cardiovascular Exam Cardiovascular Exam: REGULAR RHYTHM, +S1, +S2 Assessment and Plan - Assessment and Plan (Free Text) Assessment: FALL WITH RIGHT ELBOW FRACTURE HYPERLIPIDEMIA Plan: FOR SURGERY THIS MORNING
[2017-12-27] MEDS ORDERED: Desflurane Inhalation Anesthetic Liq (240 ml) ONE (08:58)
[2017-12-27] MEDS ORDERED: Neostigmine 1:1000 (1 mg/ml) Inj ONE (09:35)
[2017-12-27] MEDS ORDERED: Propofol 10 mg/ml Inj (20 ML) ONE (09:43)
--- NOTE | 2017-12-27 09:43 | PCM.SURG1 ---
Surgeon's Initial Post Op Note - Surgeon's Notes Surgeon: Abimael Clinical Trial Data Manager: CELIA Saha Type of Anesthesia: General Endo Anesthesia Administered By: DR Ulrich Pre-Operative Diagnosis: Displaced/comminuted oilecranon fx R elbow Operative Findings: as above- displaced.comminuted R olecranon fx Post-Operative Diagnosis: as above Operation Performed: ORIF displaced comminuted r olecranon fx. autograft/ allogrfat bone graft. applx posterior splint. positioining of fluoro/ interpreattion of video images Specimen/Specimens Removed: fx callous Estimated Blood Loss: EBL {In ML}: 10 Drains Used: No Drains Post-Op Condition: Good Date of Surgery/Procedure: 12/27/17 Time of Surgery/Procedure: 09:00 (time in room/anaesthesia indcution time 7:50)
[2017-12-27] MEDS ORDERED: Naloxone 0.4 mg/ml Inj (Adult) ONE (09:47)
--- NOTE | 2017-12-27 10:06 | PCM.ANESB4 ---
Infraclavicular Block - Femoral Nerve Block Date of Procedure: 12/27/17 Anesthesiologist: marco antonio Pre-Procedure Diagnosis: r elbow fx Post-Procedure Diagnosis: same Procedure Performed: Brachial Plexus at the Infraclavicular area Right - Procedure Infraclavicular Block: The procedure was explained to the patient that it is for the post-operative pain management. Consent was obtained after a thorough discussion with the patient regarding the benefits and possible complications of local anesthetic block of the brachial plexus at the supraclavicular area. The patient was brought to the operating room and standard monitors were applied. Time-out was held with the circulating nurse to confirm the correct surgery and the appropriate block. After applying oxygen by nasal cannula and administering IV Sedation, patient's head was gently rotated away from the operative _right _ shoulder and the area superior to the clavicle was carefully palpated. The ultrasound transducer was then applied to the skin in the transverse plane and the brachial plexus was visualized surrounding the artery. After thorough identification, this area was prepped with Betadine solution three times and 1 % Lidocaine was injected subcutaneously for topical anesthesia. At this point, a #21 gauge Stimuplex 4-inch needle was inserted lateral to the ultrasound transducer and superior to the clavicle in-plane towards the lateral aspect of the artery. Needle advancement was performed carefully under ultrasound visualization. Nerve stimulator was used and twitch of the affected extremity including fingers, hand, wrist and elbow was obtained at current of _ 2.0____MA. After repeated negative aspiration, __1___cc of __0.5___% _ ropivicaine was injected and this was followed with __19____ cc of _0.5 % _ropivicaine . Under ultrasound guidance the local anesthetics were observed surrounding the cords of the brachial plexus. The needle was removed intact and sterile dressing was applied. The patient had stable vital signs, was conscious and in no apparent distress. The patient tolerated the infraclavicular block of the brachial plexus well with stable vital signs was prepared for subsequent surgery.
[2017-12-27] MEDS ORDERED: HYDROmorphone 0.5 mg/0.5 ml ISec IVP PRN (10:07)
[2017-12-27] MEDS ORDERED: Sodium Chloride 0.9% 1,000 ML IV SCH (10:30)
--- NOTE | 2017-12-27 11:25 | RAD ---
PROCEDURE: Radiographs of the right elbow. HISTORY: pt in pacu, s/p ORIF right olecranon COMPARISON: 12/24/2017 FINDINGS: BONES: The prior comminuted olecranon fracture is transfixed by 2 pins and posterior/ cerclage wiring. . The frontal view proximal radial metaphyseal-diaphyseal "Deformity "may be technical - no pre op fracture here or pathology appreciated. Consider follow-up imaging when patient can tolerate JOINTS: Ulnar humeral spurring compatible with osteoarthritis. SOFT TISSUES: Posterior skin sutures overlying casting noted JOINT EFFUSION: Present OTHER FINDINGS: None. IMPRESSION: Open reduction and internal fixation of a prior comminuted right olecranon fracture. These fracture fragments appear anatomically aligned. The projection may explain the proximal radial diaphyseal appearance. Please note the above comments regarding this consider follow-up imaging
[2017-12-27] MEDS: ceFAZolin 2 GM in Sodium Chloride 0.9% 100 ML IVPB SCH ×2 (16:40→23:32)
--- NOTE | 2017-12-27 17:03 | RAD ---
PROCEDURE: Fluoroscopy up to 1 hr. HISTORY: RIGHT ELBOW ORIF COMPARISON: None TECHNIQUE: Standard protocol for this study/examination. FINDINGS: Total fluoroscopic time (continuous mode) utilized during the procedure 6.7 (seconds). Total exam DLP: (mGy) 0.12 IMPRESSION: Less than 1 hr fluoroscopic time utilized during performance of the procedure.
[2017-12-28 06:36] LABS: HEMOGLOBIN 10.1 g/dL (12.0-16.0); MEAN CELL VOLUME 84.7 fl (81.0-99.0); MEAN CORPUSCULAR HEMOGLOBIN 27.4 pg (27.0-31.0); MEAN CORPUSCULAR HGB CONC 32.4 g/dL (33.0-37.0); RBC 3.67 Mil/uL (3.80-5.20); RED CELL DISTRIBUTION WIDTH 15.7 % (11.5-14.5); WHITE BLOOD COUNT 13.1 K/uL (4.8-10.8)
[2017-12-28 06:42] LABS: BLOOD UREA NITROGEN 18 mg/dl (7-17); CALCIUM 9.2 mg/dL (8.4-10.2); GFR AFRICAN-AMERICAN > 60; GFR NON-AFRICAN AMERICAN > 60
--- NOTE | 2017-12-28 07:11 | OP ---
PROCEDURE DATE: 12/27/2017 PREOPERATIVE DIAGNOSIS: Displaced olecranon fracture, right elbow. POSTOPERATIVE DIAGNOSIS: Displaced olecranon fracture, right elbow. OPERATIVE PROCEDURE: 1. Open reduction internal fixation of right olecranon fracture. 2. Autograft and allograft bone graft. 3. Primary repair of triceps tendon. 4. Elbow arthrotomy and debridement. 5. Application of posterior splint. 6. Positioning of fluoroscope interpretation of video images. SURGEON: Christophe Varghese MD PRODUCT BUILDER: Roman Antoine PA-C SECOND SANITATION OFFICER: Kristel Fournier, certified registered nursing rn first assistant. PA is necessary to the completion of the operative goal. TYPE OF ANESTHESIA: General endotracheal anesthesia. ANESTHESIA ADMINISTERED BY: Leo Christianson MD COMPLICATIONS: No complications. DRAINS: No drains. OPERATIVE INDICATIONS: Stephany Fuller is an 82-year-old woman who sustained a slip and fall on the right elbow, sustaining a displaced right elbow fracture. The patient underwent surgical clearance and is taken to surgery today after normalization of the PT, PTT. Pros, cons, risks and benefits of the surgical approach were discussed, possibility of mechanical failure, infection, thromboembolic disease, secondary or tertiary surgery is discussed. OPERATIVE PROCEDURE: After having obtained informed consent, after satisfactory induction of general and endotracheal anesthesia by Dr. Christianson, after having identified side, site and procedure and critical pause/time-out, the patient identified as Stephany Fuller in the supine position with all bony prominences well padded, the right upper extremity was prepped and free draped in the usual fashion for upper extremity surgery. The tourniquet had been applied, but was not yet inflated. After sterilely prepping and draping, after the satisfactory induction of the anesthetic, after having identified the side, site and procedure and critical pause/time-out under the surgeon's direction, under fluoroscopic, verification of the fracture is identified on AP and lateral image intensification views. After exsanguinating the limb using a 6-inch Esmarch bandage, tourniquet which had been applied was inflated to 250 mmHg. The upper extremity was exsanguinated using a 6-inch Esmarch bandage. The tourniquet, which had been applied, was inflated to 250 mmHg. The arm was placed with the hand table across the chest. An incision is described set it on the olecranon fragment four to five fingerbreadths distally and four fingerbreadths proximally. The skin incision was carried down through the skin and subcutaneous tissue. Hemostasis is controlled. The fracture site was identified. Arthrotomy of the elbow was accomplished and the pathology is identified. The nature of the fracture is identified. The loose callus is removed using a combination of rongeur and the curette. The wound was thoroughly irrigated. Elbow arthrotomy having been accomplished, fracture is reduced, triceps tendon is identified and small slits were made to mobilize the olecranon. The olecranon is reduced satisfactorily and held with two 1.6 mm wires. Drill hole was placed in three fingerbreadths distal of the olecranon in the ulnar. The cerclage wire was placed through the ulna in a [id number] fashion and is placed around the wires. The wire site was accomplished. The fracture is reduced and at this point in time, a free wire was placed around the more ulnar pin, pins were . Under the surgeon direction, the fluoroscope was positioned, the video images were generated, therapeutic decisions were made therefrom. The result is found to be acceptable. The wound is thoroughly irrigated. The triceps tendon is repaired with interrupted Vicryl. Closure of the fascia is with #1 Vicryl, followed by 0 Vicryl and quan for skin. Jose Laboy compression dressing and posterior splint was applied. Christophe Varghese MD
[2017-12-28 07:45] VITALS: TEMP 98.6
--- NOTE | 2017-12-28 08:59 | CP.PCM.PN ---
<Herlinda Alston - Last Filed: 12/28/17 12:55> Subjective - Date & Time of Evaluation Date of Evaluation: 12/28/17 Time of Evaluation: 08:54 - Subjective Subjective: POD 1 Patient seen and examined this morning at bedside, s/p ORIF on R olecranon fx, reports feeling good, denies pain at this time, reports mild pain during night that was well controlled with medication. Denies chest pain, abdominal pain, sob or difficulty breathing, dizziness. Objective - Vital Signs/Intake and Output Vital Signs (last 24 hours): Temp Pulse Resp BP Pulse Ox 98.6 F 90 20 151/80 H 92 L 12/28/17 08:18 12/28/17 08:18 12/28/17 08:18 12/28/17 08:18 12/28/17 08:18 - Medications Medications: Current Medications Acetaminophen (Tylenol 325mg Tab) 650 mg PO Q6 PRN PRN Reason: Pain, Mild (1-3) Acetaminophen (Tylenol 325mg Tab) 650 mg PO Q6 PRN PRN Reason: Fever >100.4 F Atorvastatin Calcium (Lipitor) 10 mg PO DAILY@1700 [facility] Last Admin: 12/27/17 16:41 Dose: 10 mg Heparin Sodium (Porcine) (Heparin) 5,000 units SC Q12 [facility] PRN Reason: Protocol Last Admin: 12/28/17 08:08 Dose: 5,000 units Morphine Sulfate (Morphine) 2 mg IVP Q4 PRN PRN Reason: Pain, severe (8-10) Last Admin: 12/28/17 01:53 Dose: 2 mg Ondansetron HCl (Zofran Inj) 4 mg IVP Q6 PRN PRN Reason: Nausea/Vomiting - Labs Labs: 12/28/17 05:25 12/28/17 05:25 PT 15.1 Seconds (9.8-13.1) H 12/26/17 05:40 INR 1.4 (0.9-1.2) H 12/26/17 05:40 APTT 32.7 Seconds (25.6-37.1) 12/26/17 05:40 - Constitutional Appears: No Acute Distress - Head Exam Head Exam: NORMAL INSPECTION - Eye Exam Eye Exam: EOMI, PERRL - Respiratory Exam Respiratory Exam: Clear to Ausculation Bilateral, NORMAL BREATHING PATTERN - Cardiovascular Exam Cardiovascular Exam: REGULAR RHYTHM, +S1, +S2 - GI/Abdominal Exam GI & Abdominal Exam: Soft, Normal Bowel Sounds. absent: Distended, Tenderness - Extremities Exam Extremities Exam: absent: Calf Tenderness Additional comments: Dressing clean, intact. Mild edema on fingers, strength and sensation preserved. - Neurological Exam Neurological Exam: Alert, Awake, Oriented x3 - Skin Skin Exam: Dry, Warm Assessment and Plan - Assessment and Plan (Free Text) Assessment: 82 yo F patient with PMhx/o Right breast cancer, s/p mastectomy 22 years ago, and hyperlipidemia s/p ORIF of R olecranon fx, autograft/allografat bone graft , doing well. POD 1. 1- Right elbow fracture. - Dr Varghese Ortho on board - Cardio Dr Monterroso on board - Heme/onc Dr Bennett on board 2- Fall at home - With secondary right elbow fracture, shoulder contusion and forehead contusion. - Head CT negative for intracranial lesions. 3- Hyperlipidemia - continue Crestor 4- DVT Prophylaxis - SCD - resume Heparin 5000 mg BID - OOB with precautions 5- Dispo - PT: TCU <Edis Moralez - Last Filed: 12/31/17 06:50> Objective - Vital Signs/Intake and Output Vital Signs (last 24 hours): Temp Pulse Resp BP Pulse Ox 98.6 F 86 18 120/73 94 L 12/28/17 15:38 12/28/17 15:38 12/28/17 15:38 12/28/17 15:38 12/28/17 15:38 - Labs Labs: 12/28/17 05:25 12/28/17 05:25 PT 15.1 Seconds (9.8-13.1) H 12/26/17 05:40 INR 1.4 (0.9-1.2) H 12/26/17 05:40 APTT 32.7 Seconds (25.6-37.1) 12/26/17 05:40 Attending/Attestation - Attestation I have personally seen and examined this patient.: Yes I have fully participated in the care of the patient.: Yes I have reviewed all pertinent clinical information, including history, physical exam and plan: Yes
--- NOTE | 2017-12-28 09:38 | CP.PCM.PN ---
Subjective - Date & Time of Evaluation Date of Evaluation: 12/28/17 Time of Evaluation: 08:45 - Subjective Subjective: NO CHEST PAIN OR SOB Objective - Vital Signs/Intake and Output Vital Signs (last 24 hours): Temp Pulse Resp BP Pulse Ox 98.6 F 90 20 151/80 H 92 L 12/28/17 08:18 12/28/17 08:18 12/28/17 08:18 12/28/17 08:18 12/28/17 08:18 - Medications Medications: Current Medications Acetaminophen (Tylenol 325mg Tab) 650 mg PO Q6 PRN PRN Reason: Pain, Mild (1-3) Acetaminophen (Tylenol 325mg Tab) 650 mg PO Q6 PRN PRN Reason: Fever >100.4 F Atorvastatin Calcium (Lipitor) 10 mg PO DAILY@1700 [facility] Last Admin: 12/27/17 16:41 Dose: 10 mg Heparin Sodium (Porcine) (Heparin) 5,000 units SC Q12 [facility] PRN Reason: Protocol Last Admin: 12/28/17 08:08 Dose: 5,000 units Morphine Sulfate (Morphine) 2 mg IVP Q4 PRN PRN Reason: Pain, severe (8-10) Last Admin: 12/28/17 01:53 Dose: 2 mg Ondansetron HCl (Zofran Inj) 4 mg IVP Q6 PRN PRN Reason: Nausea/Vomiting - Labs Labs: 12/28/17 05:25 12/28/17 05:25 PT 15.1 Seconds (9.8-13.1) H 12/26/17 05:40 INR 1.4 (0.9-1.2) H 12/26/17 05:40 APTT 32.7 Seconds (25.6-37.1) 12/26/17 05:40 - Respiratory Exam Respiratory Exam: Clear to Ausculation Bilateral - Cardiovascular Exam Cardiovascular Exam: REGULAR RHYTHM, +S1, +S2 - Extremities Exam Additional comments: NO LE EDEMA - Additional Findings Additional findings: ORTHOPEDIC NOTE REVIEWED WITH ORIF OF RIGHT ELBOW FRACTURE Assessment and Plan - Assessment and Plan (Free Text) Assessment: RIGHT ELBOW FRACTURE WITH SURGICAL REPAIR HYPERLIPIDEMIA Plan: CONTINUE ATORVASTATIN, HEPARIN AND PAIN MEDICATION
--- NOTE | 2017-12-28 10:33 | CP.PCM.PN ---
Subjective - Date & Time of Evaluation Date of Evaluation: 12/28/17 Time of Evaluation: 10:31 - Subjective Subjective: Pt did well with surgery, and her Hgb is stable. She is to start acute rehab soon.Will monitor CBC. if stable will sign off case. Objective - Vital Signs/Intake and Output Vital Signs (last 24 hours): Temp Pulse Resp BP Pulse Ox 98.6 F 90 20 151/80 H 92 L 12/28/17 08:18 12/28/17 08:18 12/28/17 08:18 12/28/17 08:18 12/28/17 08:18 - Medications Medications: Current Medications Acetaminophen (Tylenol 325mg Tab) 650 mg PO Q6 PRN PRN Reason: Pain, Mild (1-3) Acetaminophen (Tylenol 325mg Tab) 650 mg PO Q6 PRN PRN Reason: Fever >100.4 F Atorvastatin Calcium (Lipitor) 10 mg PO DAILY@1700 [facility] Last Admin: 12/27/17 16:41 Dose: 10 mg Heparin Sodium (Porcine) (Heparin) 5,000 units SC Q12 [facility] PRN Reason: Protocol Last Admin: 12/28/17 08:08 Dose: 5,000 units Morphine Sulfate (Morphine) 2 mg IVP Q4 PRN PRN Reason: Pain, severe (8-10) Last Admin: 12/28/17 01:53 Dose: 2 mg Ondansetron HCl (Zofran Inj) 4 mg IVP Q6 PRN PRN Reason: Nausea/Vomiting - Labs Labs: 12/28/17 05:25 12/28/17 05:25 PT 15.1 Seconds (9.8-13.1) H 12/26/17 05:40 INR 1.4 (0.9-1.2) H 12/26/17 05:40 APTT 32.7 Seconds (25.6-37.1) 12/26/17 05:40
--- NOTE | 2017-12-28 12:45 | CP.PCM.PN ---
Subjective - Date & Time of Evaluation Date of Evaluation: 12/28/17 Time of Evaluation: 12:43 - Subjective Subjective: Patient states she has a lot of pain in elbow but pain medication helps. Denies CP/SOB/cough/dizziness/numbness/tingling. Objective - Vital Signs/Intake and Output Vital Signs (last 24 hours): Temp Pulse Resp BP Pulse Ox 98.6 F 90 20 151/80 H 92 L 12/28/17 08:18 12/28/17 08:18 12/28/17 08:18 12/28/17 08:18 12/28/17 08:18 - Medications Medications: Current Medications Acetaminophen (Tylenol 325mg Tab) 650 mg PO Q6 PRN PRN Reason: Pain, Mild (1-3) Acetaminophen (Tylenol 325mg Tab) 650 mg PO Q6 PRN PRN Reason: Fever >100.4 F Atorvastatin Calcium (Lipitor) 10 mg PO DAILY@1700 [facility] Last Admin: 12/27/17 16:41 Dose: 10 mg Heparin Sodium (Porcine) (Heparin) 5,000 units SC Q12 [facility] PRN Reason: Protocol Last Admin: 12/28/17 08:08 Dose: 5,000 units Morphine Sulfate (Morphine) 2 mg IVP Q4 PRN PRN Reason: Pain, severe (8-10) Last Admin: 12/28/17 01:53 Dose: 2 mg Ondansetron HCl (Zofran Inj) 4 mg IVP Q6 PRN PRN Reason: Nausea/Vomiting - Labs Labs: 12/28/17 05:25 12/28/17 05:25 PT 15.1 Seconds (9.8-13.1) H 12/26/17 05:40 INR 1.4 (0.9-1.2) H 12/26/17 05:40 APTT 32.7 Seconds (25.6-37.1) 12/26/17 05:40 - Extremities Exam Additional comments: RUE: hanging. +ROM fingers, thumb. Sensation intact med/ulnar/rad nerve distrib , fingers warm, good cap refill Assessment and Plan (1) Displaced fracture of olecranon process of right ulna with intra-articular extension Assessment & Plan: POD#1 s/p ORIF right olecranon patient lives alone and considering TCU placement NWB RUE PT/OT orthopedicaly stable WBC up today, likely reactive, monitor, afeb d/w Dr. Varghese, agrees with above Status: Acute (2) Hyperlipidemia Status: Chronic
--- NOTE | 2017-12-28 15:19 | CP.PCM.DIS ---
<Herlinda Alston - Last Filed: 12/29/17 13:13> Provider - Provider Date of Admission: 12/24/17 18:24 Attending physician: Felix Vasquez MD Primary care physician: Dr Felix Vasquez Consults: Ortho: Dr Varghese Cardiology: Dr Monterroso Heme/onco: Dr Veronica Bennett Time Spent in preparation of Discharge (in minutes): 30 Diagnosis - Discharge Diagnosis (1) Displaced fracture of olecranon process of right ulna with intra-articular extension Status: Acute (2) Hyperlipidemia Status: Chronic Hospital Course - Lab Results Lab Results: Most Recent Lab Values WBC 13.1 K/uL (4.8-10.8) H D 12/28/17 05:25 RBC 3.67 Mil/uL (3.80-5.20) L 12/28/17 05:25 Hgb 10.1 g/dL (12.0-16.0) L 12/28/17 05:25 Hct 31.1 % (34.0-47.0) L 12/28/17 05:25 MCV 84.7 fl (81.0-99.0) 12/28/17 05:25 MCH 27.4 pg (27.0-31.0) 12/28/17 05:25 MCHC 32.4 g/dL (33.0-37.0) L 12/28/17 05:25 RDW 15.7 % (11.5-14.5) H 12/28/17 05:25 Plt Count 262 K/uL (130-400) 12/28/17 05:25 MPV 9.0 fl (7.2-11.7) 12/27/17 06:10 Neut % (Auto) 66.2 % (50.0-75.0) 12/27/17 06:10 Lymph % (Auto) 21.9 % (20.0-40.0) 12/27/17 06:10 [place] % (Auto) 8.3 % (0.0-10.0) 12/27/17 06:10 Eos % (Auto) 3.0 % (0.0-4.0) 12/27/17 06:10 Baso % (Auto) 0.6 % (0.0-2.0) 12/27/17 06:10 Neut # (Auto) 5.2 K/uL (1.8-7.0) 12/27/17 06:10 Lymph # (Auto) 1.7 K/uL (1.0-4.3) 12/27/17 06:10 [place] # (Auto) 0.7 K/uL (0.0-0.8) 12/27/17 06:10 Eos # (Auto) 0.2 K/uL (0.0-0.7) 12/27/17 06:10 Baso # (Auto) 0.0 K/uL (0.0-0.2) 12/27/17 06:10 PT 15.1 Seconds (9.8-13.1) H 12/26/17 05:40 INR 1.4 (0.9-1.2) H 12/26/17 05:40 APTT 32.7 Seconds (25.6-37.1) 12/26/17 05:40 Sodium 135 mmol/l (132-148) 12/28/17 05:25 Potassium 4.1 MMOL/L (3.6-5.0) 12/28/17 05:25 Chloride 96 mmol/L (98-107) L 12/28/17 05:25 Carbon Dioxide 28 mmol/L (22-30) 12/28/17 05:25 Anion Gap 15 (10-20) 12/28/17 05:25 BUN 18 mg/dl (7-17) H 12/28/17 05:25 Creatinine 0.8 mg/dl (0.7-1.2) 12/28/17 05:25 Est GFR ( Amer) > 60 12/28/17 05:25 Est GFR (Non-Af Amer) > 60 12/28/17 05:25 POC Glucose (mg/dL) 104 mg/dL (65-110) 12/24/17 19:08 Random Glucose 132 mg/dL (65-105) H 12/28/17 05:25 Calcium 9.2 mg/dL (8.4-10.2) 12/28/17 05:25 Total Bilirubin 0.5 mg/dl (0.2-1.3) 12/27/17 06:10 AST 43 U/L (14-36) H D 12/27/17 06:10 ALT 31 U/L (9-52) 12/27/17 06:10 Alkaline Phosphatase 91 U/L (38-126) 12/27/17 06:10 Total Protein 8.0 G/DL (6.3-8.2) 12/27/17 06:10 Albumin 3.9 g/dL (3.5-5.0) 12/27/17 06:10 Globulin 4.2 gm/dL (2.2-3.9) H 12/27/17 06:10 Albumin/Globulin Ratio 0.9 (1.0-2.1) L 12/27/17 06:10 25-OH Vitamin D Total 13.9 NG/ML (30.0-100.0) L 12/26/17 05:40 Urine Color Yellow (YELLOW) 12/24/17 20:37 Urine Clarity Slighty-cloudy (Clear) 12/24/17 20:37 Urine pH 5.0 (5.0-8.0) 12/24/17 20:37 Ur Specific [place] 1.016 (1.003-1.030) 12/24/17 20:37 Urine Protein Negative mg/dL (NEGATIVE) 12/24/17 20:37 Urine Glucose (UA) Neg mg/dL (Normal) 12/24/17 20:37 Urine Ketones Negative mg/dL (NEGATIVE) 12/24/17 20:37 Urine Blood Negative (NEGATIVE) 12/24/17 20:37 Urine Nitrate Negative (NEGATIVE) 12/24/17 20:37 Urine Bilirubin Negative (NEGATIVE) 12/24/17 20:37 Urine Urobilinogen 0.2-1.0 mg/dL (0.2-1.0) 12/24/17 20:37 Ur Leukocyte Esterase Mod Sergei/uL (Negative) 12/24/17 20:37 Urine RBC (Auto) 3 /hpf (0-3) 12/24/17 20:37 Urine Microscopic WBC 11 /hpf (0-5) H 12/24/17 20:37 Ur Squamous Epith Cells 2 /hpf (0-5) 12/24/17 20:37 Urine Bacteria Rare (<OCC) 12/24/17 20:37 Blood Type O POSITIVE 12/25/17 21:30 Blood Type Confirm O POSITIVE 12/24/17 19:30 Antibody Screen Negative 12/25/17 21:30 Crossmatch See Detail 12/24/17 18:50 BBK History Checked Patient has bt 12/25/17 21:30 - Hospital Course Hospital Course: 82 yo female with PMhx/o Right breast cancer, s/p mastectomy 22 years ago, and hyperlipidemia with R elbow fracture due to fall at home, POD 1 s/p ORIF R olecranon. Patient reports she was at home and she tripped on a step at home and she fell down and landed over right side with most of her weight landing on her right elbow. She denies prior or subsequent syncope, confusion, weakness, numbness. Denies chest pain, SOB, f,n,v,d,abd pain. Patient tolerated well the procedure and was provided with infraclavilar brachial plexus block for pain management.Today reports mild pain that is well controlled with medication. During this admission patient was evaluated by Heme/onco and Cardiology. Patient stable, going to TCU for OT/PT. Discharge Exam - Head Exam Head Exam: NORMAL INSPECTION - Eye Exam Eye Exam: Normal appearance - Respiratory Exam Respiratory Exam: Clear to PA & Lateral, NORMAL BREATHING PATTERN - Cardiovascular Exam Cardiovascular Exam: REGULAR RHYTHM, +S1, +S2 - GI/Abdominal Exam GI & Abdominal Exam: Normal Bowel Sounds, Soft. absent: Distended, Tenderness - Neurological Exam Neurological exam: Alert, CN II-XII Intact, Oriented x3 - Psychiatric Exam Psychiatric exam: Normal Mood - Skin Skin Exam: Dry, Warm Discharge Plan - Follow Up Plan Condition: FAIR Disposition: TRANSITIONAL CARE UNIT Instructions: Elbow Fracture (DC), Open Reduction and Internal Fixation Surgery (DC) Additional Instructions: Transferred to TCU <Edis Moralez - Last Filed: 12/31/17 06:53> Provider - Provider Date of Admission: 12/24/17 18:24 Attending physician: Felix Vasquez MD Hospital Course - Lab Results Lab Results: Most Recent Lab Values WBC 13.1 K/uL (4.8-10.8) H D 12/28/17 05:25 RBC 3.67 Mil/uL (3.80-5.20) L 12/28/17 05:25 Hgb 10.1 g/dL (12.0-16.0) L 12/28/17 05:25 Hct 31.1 % (34.0-47.0) L 12/28/17 05:25 MCV 84.7 fl (81.0-99.0) 12/28/17 05:25 MCH 27.4 pg (27.0-31.0) 12/28/17 05:25 MCHC 32.4 g/dL (33.0-37.0) L 12/28/17 05:25 RDW 15.7 % (11.5-14.5) H 12/28/17 05:25 Plt Count 262 K/uL (130-400) 12/28/17 05:25 MPV 9.0 fl (7.2-11.7) 12/27/17 06:10 Neut % (Auto) 66.2 % (50.0-75.0) 12/27/17 06:10 Lymph % (Auto) 21.9 % (20.0-40.0) 12/27/17 06:10 [place] % (Auto) 8.3 % (0.0-10.0) 12/27/17 06:10 Eos % (Auto) 3.0 % (0.0-4.0) 12/27/17 06:10 Baso % (Auto) 0.6 % (0.0-2.0) 12/27/17 06:10 Neut # (Auto) 5.2 K/uL (1.8-7.0) 12/27/17 06:10 Lymph # (Auto) 1.7 K/uL (1.0-4.3) 12/27/17 06:10 [place] # (Auto) 0.7 K/uL (0.0-0.8) 12/27/17 06:10 Eos # (Auto) 0.2 K/uL (0.0-0.7) 12/27/17 06:10 Baso # (Auto) 0.0 K/uL (0.0-0.2) 12/27/17 06:10 PT 15.1 Seconds (9.8-13.1) H 12/26/17 05:40 INR 1.4 (0.9-1.2) H 12/26/17 05:40 APTT 32.7 Seconds (25.6-37.1) 12/26/17 05:40 Sodium 135 mmol/l (132-148) 12/28/17 05:25 Potassium 4.1 MMOL/L (3.6-5.0) 12/28/17 05:25 Chloride 96 mmol/L (98-107) L 12/28/17 05:25 Carbon Dioxide 28 mmol/L (22-30) 12/28/17 05:25 Anion Gap 15 (10-20) 12/28/17 05:25 BUN 18 mg/dl (7-17) H 12/28/17 05:25 Creatinine 0.8 mg/dl (0.7-1.2) 12/28/17 05:25 Est GFR ( Amer) > 60 12/28/17 05:25 Est GFR (Non-Af Amer) > 60 12/28/17 05:25 POC Glucose (mg/dL) 104 mg/dL (65-110) 12/24/17 19:08 Random Glucose 132 mg/dL (65-105) H 12/28/17 05:25 Calcium 9.2 mg/dL (8.4-10.2) 12/28/17 05:25 Total Bilirubin 0.5 mg/dl (0.2-1.3) 12/27/17 06:10 AST 43 U/L (14-36) H D 12/27/17 06:10 ALT 31 U/L (9-52) 12/27/17 06:10 Alkaline Phosphatase 91 U/L (38-126) 12/27/17 06:10 Total Protein 8.0 G/DL (6.3-8.2) 12/27/17 06:10 Albumin 3.9 g/dL (3.5-5.0) 12/27/17 06:10 Globulin 4.2 gm/dL (2.2-3.9) H 12/27/17 06:10 Albumin/Globulin Ratio 0.9 (1.0-2.1) L 12/27/17 06:10 25-OH Vitamin D Total 13.9 NG/ML (30.0-100.0) L 12/26/17 05:40 Urine Color Yellow (YELLOW) 12/24/17 20:37 Urine Clarity Slighty-cloudy (Clear) 12/24/17 20:37 Urine pH 5.0 (5.0-8.0) 12/24/17 20:37 Ur Specific [place] 1.016 (1.003-1.030) 12/24/17 20:37 Urine Protein Negative mg/dL (NEGATIVE) 12/24/17 20:37 Urine Glucose (UA) Neg mg/dL (Normal) 12/24/17 20:37 Urine Ketones Negative mg/dL (NEGATIVE) 12/24/17 20:37 Urine Blood Negative (NEGATIVE) 12/24/17 20:37 Urine Nitrate Negative (NEGATIVE) 12/24/17 20:37 Urine Bilirubin Negative (NEGATIVE) 12/24/17 20:37 Urine Urobilinogen 0.2-1.0 mg/dL (0.2-1.0) 12/24/17 20:37 Ur Leukocyte Esterase Mod Sergei/uL (Negative) 12/24/17 20:37 Urine RBC (Auto) 3 /hpf (0-3) 12/24/17 20:37 Urine Microscopic WBC 11 /hpf (0-5) H 12/24/17 20:37 Ur Squamous Epith Cells 2 /hpf (0-5) 12/24/17 20:37 Urine Bacteria Rare (<OCC) 12/24/17 20:37 Blood Type O POSITIVE 12/25/17 21:30 Blood Type Confirm O POSITIVE 12/24/17 19:30 Antibody Screen Negative 12/25/17 21:30 Crossmatch See Detail 12/24/17 18:50 BBK History Checked Patient has bt 12/25/17 21:30 Attending/Attestation - Attestation I have personally seen and examined this patient.: Yes I have fully participated in the care of the patient.: Yes I have reviewed all pertinent clinical information, including history, physical exam and plan: Yes
[2017-12-28 15:38] VITALS: BP 120/73; PULSE 86; RESP 18; O2SAT 94
== END 2017-12-28 16:00 | DRG 502 ==
LOC: H.ER 16:14 → H.ERHOLD 18:24 → H.MEDSURG1 21:44
PROVIDERS: ADMIT Family Medicine; ATTEND Family Medicine
PROC: 30233K1 Transfusion of Nonautologous Frozen Plasma into Peripheral Vein, Percutaneous Approach (ICD-10-PCS; 2017-12-25)
PROC: 0PSK04Z Reposition Right Ulna with Internal Fixation Device, Open Approach (ICD-10-PCS; 2017-12-27)
PROC: 0PUK0KZ Supplement Right Ulna with Nonautologous Tissue Substitute, Open Approach (ICD-10-PCS; 2017-12-27)
PROC: 3E0T3BZ Introduction of Anesthetic Agent into Peripheral Nerves and Plexi, Percutaneous Approach (ICD-10-PCS; principal; 2017-12-27 08:45)
PROC: 0LQ30ZZ Repair Right Upper Arm Tendon, Open Approach (ICD-10-PCS; 2017-12-27 08:45)
DX: S52.031A Displaced fracture of olecranon process with intraarticular extension of right ulna, initial encounter for closed fracture (principal); W10.9XXA Fall (on) (from) unspecified stairs and steps, initial encounter; Y92.009 Unspecified place in unspecified non-institutional (private) residence as the place of occurrence of the external cause; Z85.3 Personal history of malignant neoplasm of breast; Z90.11 Acquired absence of right breast and nipple; E78.5 Hyperlipidemia, unspecified; E78.00 Pure hypercholesterolemia, unspecified; S00.83XA Contusion of other part of head, initial encounter; R79.1 Abnormal coagulation profile; T46.6X5A Adverse effect of antihyperlipidemic and antiarteriosclerotic drugs, initial encounter

== ENCOUNTER 2017-12-28 15:30 | Inpatient (IN) | payer OTHER ==
[2017-12-28 16:21] VITALS: BMI 30.7
[2017-12-28 16:28] VITALS: RESP 20
[2017-12-28] MEDS ORDERED: Oxycodone/Acetaminophen 5/325 mg Tab PO PRN (19:33)
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
--- NOTE | 2017-12-31 10:29 | CP.PCM.PN ---
Subjective - Date & Time of Evaluation Date of Evaluation: 12/31/17 Time of Evaluation: 10:29 - Subjective Subjective: Patient seen OOB to chair comfortable. Pain well controlled. No new complaints. Objective - Vital Signs/Intake and Output Vital Signs (last 24 hours): Temp Pulse Resp BP Pulse Ox 98.1 F 81 20 126/67 94 L 12/31/17 08:08 12/31/17 08:08 12/31/17 08:08 12/31/17 08:08 12/31/17 08:08 - Medications Medications: Current Medications Acetaminophen (Tylenol 325mg Tab) 650 mg PO Q6 PRN PRN Reason: Pain, Mild (1-3) Acetaminophen (Tylenol 325mg Tab) 650 mg PO Q6 PRN PRN Reason: Fever >100.4 F Atorvastatin Calcium (Lipitor) 10 mg PO DAILY@2100 [facility] Last Admin: 12/30/17 21:04 Dose: 10 mg Heparin Sodium (Porcine) (Heparin) 5,000 units SC Q12 [facility] Last Admin: 12/31/17 08:00 Dose: 5,000 units Ondansetron HCl (Zofran Inj) 4 mg IVP Q6 PRN PRN Reason: Nausea/Vomiting Oxycodone/Acetaminophen (Percocet 5/325 Mg Tab) 1 tab PO Q4 PRN PRN Reason: Pain, severe (8-10) Stop: 12/31/17 19:34 - Back Exam Additional comments: RUE: long arm splint intact, minimal swelling to fingers sensation and motor intact MN/UN/RN 2 sec cap refill all fingers Assessment and Plan (1) Displaced fracture of olecranon process of right ulna with intra-articular extension Assessment & Plan: POD #4 R olecranon fx ORIF doing well -pain control -OT NWB RUE -elevate RUE -orthopedically stable -above d/w Dr Varghese in agreement Status: Acute
--- NOTE | 2017-12-31 10:43 | CP.PCM.PN ---
<Herlinda Alston - Last Filed: 12/31/17 10:52> Subjective - Date & Time of Evaluation Date of Evaluation: 12/31/17 Time of Evaluation: 10:42 - Subjective Subjective: Patient seen and examined today during rounding, reports feeling better, pain well controlled. No new complaints. Afebrile, no chest or abdominal pain, sob. No urinary symptoms, normal daily BM. Objective - Vital Signs/Intake and Output Vital Signs (last 24 hours): Temp Pulse Resp BP Pulse Ox 98.1 F 81 20 126/67 94 L 12/31/17 08:08 12/31/17 08:08 12/31/17 08:08 12/31/17 08:08 12/31/17 08:08 - Medications Medications: Current Medications Acetaminophen (Tylenol 325mg Tab) 650 mg PO Q6 PRN PRN Reason: Pain, Mild (1-3) Acetaminophen (Tylenol 325mg Tab) 650 mg PO Q6 PRN PRN Reason: Fever >100.4 F Atorvastatin Calcium (Lipitor) 10 mg PO DAILY@2100 [facility] Last Admin: 12/30/17 21:04 Dose: 10 mg Heparin Sodium (Porcine) (Heparin) 5,000 units SC Q12 [facility] Last Admin: 12/31/17 08:00 Dose: 5,000 units Ondansetron HCl (Zofran Inj) 4 mg IVP Q6 PRN PRN Reason: Nausea/Vomiting Oxycodone/Acetaminophen (Percocet 5/325 Mg Tab) 1 tab PO Q4 PRN PRN Reason: Pain, severe (8-10) Stop: 12/31/17 19:34 - Constitutional Appears: No Acute Distress - Head Exam Head Exam: NORMAL INSPECTION - Eye Exam Eye Exam: EOMI, PERRL - Respiratory Exam Respiratory Exam: Clear to Ausculation Bilateral, NORMAL BREATHING PATTERN - Cardiovascular Exam Cardiovascular Exam: REGULAR RHYTHM, +S1, +S2 - GI/Abdominal Exam GI & Abdominal Exam: Soft, Normal Bowel Sounds. absent: Distended, Tenderness - Neurological Exam Neurological Exam: Alert, Awake, CN II-XII Intact, Oriented x3 - Skin Skin Exam: Dry, Warm Assessment and Plan - Assessment and Plan (Free Text) Assessment: 82 yo F patient with PMhx/o Right breast cancer, s/p mastectomy 22 years ago, and hyperlipidemia s/p ORIF of Joey reardonn fx, autograft/allografat bone graft , doing well. POD 4. Now in TCU for PT/OT. 1- Right elbow fracture. - 2/2 fall a home - Dr Abimael Guzman on board - Cardio Dr Monterroso on board - Heme/onc Dr Bennett on board - c/w incentive spirometry - pain management 2- Hyperlipidemia - continue Crestor 3- DVT Prophylaxis - SCD - Heparin 5000 mg BID - OOB with precautions 4- Dispo -TCU day 3 <Edis Moralez - Last Filed: 01/01/18 06:57> Objective - Vital Signs/Intake and Output Vital Signs (last 24 hours): Temp Pulse Resp BP Pulse Ox 98.4 F 91 H 20 121/62 98 12/31/17 21:12 12/31/17 21:12 12/31/17 21:12 12/31/17 21:12 12/31/17 21:12 - Medications Medications: Current Medications Acetaminophen (Tylenol 325mg Tab) 650 mg PO Q6 PRN PRN Reason: Pain, Mild (1-3) Acetaminophen (Tylenol 325mg Tab) 650 mg PO Q6 PRN PRN Reason: Fever >100.4 F Atorvastatin Calcium (Lipitor) 10 mg PO DAILY@2100 [facility] Last Admin: 12/31/17 23:00 Dose: 10 mg Heparin Sodium (Porcine) (Heparin) 5,000 units SC Q12 [facility] Last Admin: 12/31/17 23:00 Dose: 5,000 units Ondansetron HCl (Zofran Inj) 4 mg IVP Q6 PRN PRN Reason: Nausea/Vomiting Attending/Attestation - Attestation I have personally seen and examined this patient.: Yes I have fully participated in the care of the patient.: Yes I have reviewed all pertinent clinical information, including history, physical exam and plan: Yes
[2018-01-01] MEDS ORDERED: Lidocaine/Prilocaine CREAM 5GM TP ONE (08:23)
[2018-01-01] MEDS ORDERED: Lidocaine/Prilocaine CREAM 5GM TP SCH (08:30)
[2018-01-01 09:58] LABS: BASO # 0.1 K/uL (0.0-0.2); BASO % 0.8 % (0.0-2.0); EOS # 0.3 K/uL (0.0-0.7); EOS % 3.6 % (0.0-4.0); HEMOGLOBIN 10.5 g/dL (12.0-16.0); LYMPH # 1.9 K/uL (1.0-4.3); LYMPH % 21.8 % (20.0-40.0); MEAN CELL VOLUME 84.6 fl (81.0-99.0); MEAN CORPUSCULAR HEMOGLOBIN 27.7 pg (27.0-31.0); MEAN CORPUSCULAR HGB CONC 32.7 g/dL (33.0-37.0); MEAN PLATELET VOLUME 9.2 fl (7.2-11.7); MONO # 0.4 K/uL (0.0-0.8); MONO % 4.8 % (0.0-10.0); NEUT # 5.9 K/uL (1.8-7.0); NRBC % 0.1 % (0.0-0.0); RBC 3.8 Mil/uL (3.80-5.20); RED CELL DISTRIBUTION WIDTH 15.4 % (11.5-14.5); WHITE BLOOD COUNT 8.6 K/uL (4.8-10.8)
[2018-01-01 10:26] LABS: BLOOD UREA NITROGEN 22 mg/dl (7-17); CALCIUM 9.5 mg/dL (8.4-10.2); GFR AFRICAN-AMERICAN > 60; GFR NON-AFRICAN AMERICAN > 60
--- NOTE | 2018-01-01 11:42 | CP.PCM.PN ---
Subjective - Date & Time of Evaluation Date of Evaluation: 01/01/18 Time of Evaluation: 11:40 - Subjective Subjective: Patient denies numbness/tingling. She says pain in controlled in elbow but splint feels tight on hand. Objective - Vital Signs/Intake and Output Vital Signs (last 24 hours): Temp Pulse Resp BP Pulse Ox 97.9 F 81 20 136/72 93 L 01/01/18 09:09 01/01/18 09:09 01/01/18 09:09 01/01/18 09:09 01/01/18 09:09 - Medications Medications: Current Medications Acetaminophen (Tylenol 325mg Tab) 650 mg PO Q6 PRN PRN Reason: Pain, Mild (1-3) Acetaminophen (Tylenol 325mg Tab) 650 mg PO Q6 PRN PRN Reason: Fever >100.4 F Atorvastatin Calcium (Lipitor) 10 mg PO DAILY@2100 [facility] Last Admin: 12/31/17 23:00 Dose: 10 mg Heparin Sodium (Porcine) (Heparin) 5,000 units SC Q12 [facility] Last Admin: 01/01/18 08:07 Dose: 5,000 units Lidocaine/Prilocaine (Lidocaine/Prilocaine 2.5%-2.5%) 1 applic TP ONCE [facility] Ondansetron HCl (Zofran Inj) 4 mg IVP Q6 PRN PRN Reason: Nausea/Vomiting - Labs Labs: 01/01/18 09:30 01/01/18 09:30 - Extremities Exam Additional comments: splint changed. Incision c/d/i, scant sero sang drainage, blister sites healing well, no erythema. Non stick dressing/gauze, new well padded posteriro long arm splint applied. pt NVID pre and post splint application Assessment and Plan (1) Displaced fracture of olecranon process of right ulna with intra-articular extension Assessment & Plan: POD# 5 s/p ORIF right olecranon NWB keep splint dry and intact elevation ice ortho stable sling when ambulating f/u Dr. Varghese 7-10 days call for appt upon d/c d/w Dr. Varghese, agrees with above Status: Acute
--- NOTE | 2018-01-01 15:18 | CP.PCM.PN ---
<Sultan Logan - Last Filed: 01/01/18 15:15> Subjective - Date & Time of Evaluation Date of Evaluation: 01/01/18 Time of Evaluation: 07:45 - Subjective Subjective: Patient seen and examined this morning during rounds. Pt reports pain in the ulnar aspects of right arm. Denies any numbness/tingling/swelling/warmth. Tolerating PO intake. Normal BM and voiding regularly. Has been afebrile. Denies dyspnea, chest pain, GI or complaints. Objective - Vital Signs/Intake and Output Vital Signs (last 24 hours): Temp Pulse Resp BP Pulse Ox 97.9 F 81 20 136/72 93 L 01/01/18 09:09 01/01/18 09:09 01/01/18 09:09 01/01/18 09:09 01/01/18 09:09 - Medications Medications: Current Medications Acetaminophen (Tylenol 325mg Tab) 650 mg PO Q6 PRN PRN Reason: Pain, Mild (1-3) Acetaminophen (Tylenol 325mg Tab) 650 mg PO Q6 PRN PRN Reason: Fever >100.4 F Atorvastatin Calcium (Lipitor) 10 mg PO DAILY@2100 [facility] Last Admin: 12/31/17 23:00 Dose: 10 mg Heparin Sodium (Porcine) (Heparin) 5,000 units SC Q12 [facility] Last Admin: 01/01/18 08:07 Dose: 5,000 units Lidocaine/Prilocaine (Lidocaine/Prilocaine 2.5%-2.5%) 1 applic TP ONCE [facility] Ondansetron HCl (Zofran Inj) 4 mg IVP Q6 PRN PRN Reason: Nausea/Vomiting - Labs Labs: 01/01/18 09:30 01/01/18 09:30 - Constitutional Appears: No Acute Distress - Head Exam Head Exam: NORMAL INSPECTION - ENT Exam ENT Exam: Mucous Membranes Moist - Respiratory Exam Respiratory Exam: Clear to Ausculation Bilateral, NORMAL BREATHING PATTERN. absent: Rales, Rhonchi - Cardiovascular Exam Cardiovascular Exam: REGULAR RHYTHM, RRR, +S1, +S2 - GI/Abdominal Exam GI & Abdominal Exam: Soft, Normal Bowel Sounds. absent: Tenderness - Extremities Exam Additional comments: Cast in right forearm. No swelling or redness on the fingers. - Neurological Exam Neurological Exam: Alert, Awake, Oriented x3 - Psychiatric Exam Psychiatric exam: Normal Affect, Normal Mood - Skin Skin Exam: Dry, Warm Assessment and Plan - Assessment and Plan (Free Text) Assessment: Assessment: 82 yo female with pmhx of Right breast cancer, s/p mastectomy 22 years ago, and hyperlipidemia, s/p ORIF of R olecranon fx, autograft/allografat bone graft, doing well. POD 5. Now in TCU for PT/OT. 1- Right elbow fracture -Splint changed today - 2/2 fall a home - Dr Abimael Guzman on board - Cardio Dr Monterroso on board - Heme/onc Dr Bennett on board - c/w incentive spirometry - Pain management -PT/OT 2- Hyperlipidemia - Continue Crestor 3- DVT Prophylaxis - SCD - Heparin 5000 mg BID - OOB with precautions 4- Dispo -TCU day 4 <Felix Vasquez - Last Filed: 01/04/18 06:53> Objective - Vital Signs/Intake and Output Vital Signs (last 24 hours): Temp Pulse Resp BP Pulse Ox 98.2 F 86 20 119/61 96 01/03/18 19:40 01/03/18 19:40 01/03/18 19:40 01/03/18 19:40 01/03/18 19:40 - Medications Medications: Current Medications Acetaminophen (Tylenol 325mg Tab) 650 mg PO Q6 PRN PRN Reason: Pain, Mild (1-3) Acetaminophen (Tylenol 325mg Tab) 650 mg PO Q6 PRN PRN Reason: Fever >100.4 F Atorvastatin Calcium (Lipitor) 10 mg PO DAILY@2100 [facility] Last Admin: 01/03/18 20:51 Dose: 10 mg Heparin Sodium (Porcine) (Heparin) 5,000 units SC Q12 [facility] Last Admin: 01/03/18 20:51 Dose: 5,000 units Lidocaine/Prilocaine (Lidocaine/Prilocaine 2.5%-2.5%) 1 applic TP ONCE [facility] Last Admin: 01/01/18 13:00 Dose: 1 applic Ondansetron HCl (Zofran Inj) 4 mg IVP Q6 PRN PRN Reason: Nausea/Vomiting - Labs Labs: 01/01/18 09:30 01/01/18 09:30 Attending/Attestation - Attestation I have personally seen and examined this patient.: Yes I have fully participated in the care of the patient.: Yes I have reviewed all pertinent clinical information, including history, physical exam and plan: Yes
--- NOTE | 2018-01-02 12:07 | CP.PCM.PN ---
Subjective - Date & Time of Evaluation Date of Evaluation: 01/02/18 Time of Evaluation: 07:35 - Subjective Subjective: Patient seen and examined during rounds today. Pt's splint was changed yesterday and reports no hand pain today. Denies any numbness/tingling/swelling/ warmth. Pt is eating and drinking with no problems. Normal BM and voiding regularly. Has been afebrile. Denies dyspnea, chest pain, GI or complaints. Pt is receiving PT daily. Objective - Vital Signs/Intake and Output Vital Signs (last 24 hours): Temp Pulse Resp BP Pulse Ox 97.7 F 87 20 137/80 99 01/02/18 08:14 01/02/18 08:14 01/02/18 08:14 01/02/18 08:14 01/02/18 08:14 - Medications Medications: Current Medications Acetaminophen (Tylenol 325mg Tab) 650 mg PO Q6 PRN PRN Reason: Pain, Mild (1-3) Acetaminophen (Tylenol 325mg Tab) 650 mg PO Q6 PRN PRN Reason: Fever >100.4 F Atorvastatin Calcium (Lipitor) 10 mg PO DAILY@2100 [facility] Last Admin: 01/01/18 20:41 Dose: 10 mg Heparin Sodium (Porcine) (Heparin) 5,000 units SC Q12 [facility] Last Admin: 01/02/18 08:30 Dose: 5,000 units Lidocaine/Prilocaine (Lidocaine/Prilocaine 2.5%-2.5%) 1 applic TP ONCE [facility] Last Admin: 01/01/18 13:00 Dose: 1 applic Ondansetron HCl (Zofran Inj) 4 mg IVP Q6 PRN PRN Reason: Nausea/Vomiting - Labs Labs: 01/01/18 09:30 01/01/18 09:30 - Constitutional Appears: No Acute Distress - ENT Exam ENT Exam: Mucous Membranes Moist - Neck Exam Neck Exam: Normal Inspection - Respiratory Exam Respiratory Exam: Clear to Ausculation Bilateral. absent: Rales, Rhonchi, Wheezes - Cardiovascular Exam Cardiovascular Exam: REGULAR RHYTHM, RRR, +S1, +S2 - GI/Abdominal Exam GI & Abdominal Exam: Soft, Normal Bowel Sounds. absent: Tenderness - Extremities Exam Extremities Exam: Normal Capillary Refill, Normal Inspection. absent: Calf Tenderness - Neurological Exam Neurological Exam: Alert, Awake, Oriented x3 - Psychiatric Exam Psychiatric exam: Normal Affect, Normal Mood Assessment and Plan - Assessment and Plan (Free Text) Assessment: Assessment: 82 yo female with pmhx of right breast cancer, s/p mastectomy 22 years ago, and hyperlipidemia, s/p ORIF of R olecranon fx, autograft/allografat bone graft, doing well. POD 6. Now in TCU for PT/OT. 1- Right elbow fracture -Splint changed yesterday due to pt's discomfort - 2/2 fall a home - Dr Abimael Guzman on board - Cardio Dr Monterroso on board - Heme/onc Dr Bennett on board - c/w incentive spirometry - Pain management -Continue PT/OT 2- Hyperlipidemia - Continue Crestor 3- DVT Prophylaxis - SCD - Heparin 5000 mg BID - OOB with precautions 4- Dispo -TCU day 4
--- NOTE | 2018-01-03 07:08 | CP.PCM.PN ---
<Sultan Logan - Last Filed: 01/03/18 10:25> Subjective - Date & Time of Evaluation Date of Evaluation: 01/03/18 Time of Evaluation: 07:50 - Subjective Subjective: Patient seen and examined this morning. Pt is doing well with PT therapy. Denies any complaints today. Pt is eating and drinking with no problems. Normal BM and voiding regularly. Has been afebrile. Denies dyspnea, chest pain, GI or complaints. Objective - Vital Signs/Intake and Output Vital Signs (last 24 hours): Temp Pulse Resp BP Pulse Ox 98.2 F 95 H 20 124/62 92 L 01/02/18 21:22 01/02/18 21:22 01/02/18 21:22 01/02/18 21:22 01/02/18 21:22 - Medications Medications: Current Medications Acetaminophen (Tylenol 325mg Tab) 650 mg PO Q6 PRN PRN Reason: Pain, Mild (1-3) Acetaminophen (Tylenol 325mg Tab) 650 mg PO Q6 PRN PRN Reason: Fever >100.4 F Atorvastatin Calcium (Lipitor) 10 mg PO DAILY@2100 [facility] Last Admin: 01/02/18 20:54 Dose: 10 mg Heparin Sodium (Porcine) (Heparin) 5,000 units SC Q12 [facility] Last Admin: 01/02/18 20:54 Dose: 5,000 units Lidocaine/Prilocaine (Lidocaine/Prilocaine 2.5%-2.5%) 1 applic TP ONCE [facility] Last Admin: 01/01/18 13:00 Dose: 1 applic Ondansetron HCl (Zofran Inj) 4 mg IVP Q6 PRN PRN Reason: Nausea/Vomiting - Labs Labs: 01/01/18 09:30 01/01/18 09:30 - Constitutional Appears: No Acute Distress - Head Exam Head Exam: NORMAL INSPECTION - Neck Exam Neck Exam: Normal Inspection - Respiratory Exam Respiratory Exam: Clear to Ausculation Bilateral, NORMAL BREATHING PATTERN. absent: Rales, Rhonchi, Wheezes - Cardiovascular Exam Cardiovascular Exam: REGULAR RHYTHM, RRR, +S1, +S2 - GI/Abdominal Exam GI & Abdominal Exam: Soft, Normal Bowel Sounds. absent: Tenderness - Extremities Exam Extremities Exam: absent: Calf Tenderness - Neurological Exam Neurological Exam: Alert, Awake, Oriented x3 - Psychiatric Exam Psychiatric exam: Normal Affect, Normal Mood Assessment and Plan - Assessment and Plan (Free Text) Assessment: Assessment: 82 yo female with pmhx of right breast cancer, s/p mastectomy 22 years ago, and hyperlipidemia, s/p ORIF of R olecranon fx, autograft/allografat bone graft, doing well. POD 7. Now in TCU for PT/OT. 1- Right elbow fracture s/p ORIF - 2/2 fall a home - Dr Abimael Guzman on board - Cardio Dr Monterroso on board - Heme/onc Dr Bennett on board - c/w incentive spirometry - Pain management -Continue PT/OT 2- Hyperlipidemia - Continue Crestor 3- DVT Prophylaxis - SCD - Heparin 5000 mg BID - OOB with precautions 4-Disposition -Anticipate discharge tomorrow <Felix Vasquez - Last Filed: 01/04/18 06:58> Objective - Vital Signs/Intake and Output Vital Signs (last 24 hours): Temp Pulse Resp BP Pulse Ox 98.2 F 86 20 119/61 96 01/03/18 19:40 01/03/18 19:40 01/03/18 19:40 01/03/18 19:40 01/03/18 19:40 - Medications Medications: Current Medications Acetaminophen (Tylenol 325mg Tab) 650 mg PO Q6 PRN PRN Reason: Pain, Mild (1-3) Acetaminophen (Tylenol 325mg Tab) 650 mg PO Q6 PRN PRN Reason: Fever >100.4 F Atorvastatin Calcium (Lipitor) 10 mg PO DAILY@2100 [facility] Last Admin: 01/03/18 20:51 Dose: 10 mg Heparin Sodium (Porcine) (Heparin) 5,000 units SC Q12 [facility] Last Admin: 01/03/18 20:51 Dose: 5,000 units Lidocaine/Prilocaine (Lidocaine/Prilocaine 2.5%-2.5%) 1 applic TP ONCE [facility] Last Admin: 01/01/18 13:00 Dose: 1 applic Ondansetron HCl (Zofran Inj) 4 mg IVP Q6 PRN PRN Reason: Nausea/Vomiting - Labs Labs: 01/01/18 09:30 01/01/18 09:30 Attending/Attestation - Attestation I have personally seen and examined this patient.: Yes I have fully participated in the care of the patient.: Yes I have reviewed all pertinent clinical information, including history, physical exam and plan: Yes
[2018-01-04 07:03] LABS: HEMOGLOBIN 9.9 g/dL (12.0-16.0); MEAN CELL VOLUME 84.9 fl (81.0-99.0); MEAN CORPUSCULAR HEMOGLOBIN 27.6 pg (27.0-31.0); MEAN CORPUSCULAR HGB CONC 32.5 g/dL (33.0-37.0); RBC 3.6 Mil/uL (3.80-5.20); RED CELL DISTRIBUTION WIDTH 15.8 % (11.5-14.5); WHITE BLOOD COUNT 9.3 K/uL (4.8-10.8)
[2018-01-04 07:11] LABS: BLOOD UREA NITROGEN 23 mg/dl (7-17); CALCIUM 9.4 mg/dL (8.4-10.2); GFR AFRICAN-AMERICAN > 60; GFR NON-AFRICAN AMERICAN > 60
--- NOTE | 2018-01-04 08:55 | CP.PCM.DIS ---
<Sultan Logan - Last Filed: 01/04/18 16:46> Provider - Provider Date of Admission: 12/28/17 16:21 Attending physician: Felix Vasquez MD Time Spent in preparation of Discharge (in minutes): 30 Diagnosis - Discharge Diagnosis (1) Arthritis of knee Status: Chronic (2) Displaced fracture of olecranon process of right ulna with intra-articular extension Status: Acute Hospital Course - Lab Results Lab Results: Most Recent Lab Values WBC 9.3 K/uL (4.8-10.8) 01/04/18 05:30 RBC 3.60 Mil/uL (3.80-5.20) L 01/04/18 05:30 Hgb 9.9 g/dL (12.0-16.0) L 01/04/18 05:30 Hct 30.5 % (34.0-47.0) L 01/04/18 05:30 MCV 84.9 fl (81.0-99.0) 01/04/18 05:30 MCH 27.6 pg (27.0-31.0) 01/04/18 05:30 MCHC 32.5 g/dL (33.0-37.0) L 01/04/18 05:30 RDW 15.8 % (11.5-14.5) H 01/04/18 05:30 Plt Count 334 K/uL (130-400) 01/04/18 05:30 MPV 9.2 fl (7.2-11.7) 01/01/18 09:30 Neut % (Auto) 69.0 % (50.0-75.0) 01/01/18 09:30 Lymph % (Auto) 21.8 % (20.0-40.0) 01/01/18 09:30 [place] % (Auto) 4.8 % (0.0-10.0) 01/01/18 09:30 Eos % (Auto) 3.6 % (0.0-4.0) 01/01/18 09:30 Baso % (Auto) 0.8 % (0.0-2.0) 01/01/18 09:30 Neut # (Auto) 5.9 K/uL (1.8-7.0) 01/01/18 09:30 Lymph # (Auto) 1.9 K/uL (1.0-4.3) 01/01/18 09:30 [place] # (Auto) 0.4 K/uL (0.0-0.8) 01/01/18 09:30 Eos # (Auto) 0.3 K/uL (0.0-0.7) 01/01/18 09:30 Baso # (Auto) 0.1 K/uL (0.0-0.2) 01/01/18 09:30 Sodium 141 mmol/l (132-148) 01/04/18 05:30 Potassium 4.5 MMOL/L (3.6-5.0) 01/04/18 05:30 Chloride 100 mmol/L (98-107) 01/04/18 05:30 Carbon Dioxide 29 mmol/L (22-30) 01/04/18 05:30 Anion Gap 17 (10-20) 01/04/18 05:30 BUN 23 mg/dl (7-17) H 01/04/18 05:30 Creatinine 0.8 mg/dl (0.7-1.2) 01/04/18 05:30 Est GFR ( Amer) > 60 01/04/18 05:30 Est GFR (Non-Af Amer) > 60 01/04/18 05:30 Random Glucose 100 mg/dL (65-105) 01/04/18 05:30 Calcium 9.4 mg/dL (8.4-10.2) 01/04/18 05:30 - Hospital Course Hospital Course: 82 yo female with PMhx/o Right breast cancer, s/p mastectomy 22 years ago, and hyperlipidemia with R elbow fracture due to fall at home. Pt is s/p ORIF right olecranon process on POD 8 doing well. Pt's pain is well controlled without pain medications. Pt received PT while in TCU. Today, Pt seen and examined at bedside. Denies any complaints today. Pt is eating and drinking with no problems. Normal BM and voiding regularly. Has been afebrile. Denies dyspnea, chest pain, GI or complaints. Pt's splint was removed before discharge today. Pt is advised to f/u with Dr. Varghese in 7 ot 10 days and f/u with PMD Dr. Vasquez on 12/10/17. Discharge Exam - Additional Findings Additional findings: - Constitutional Appears: No Acute Distress - Head Exam Head Exam: NORMAL INSPECTION - Neck Exam Neck Exam: Normal Inspection - Respiratory Exam Respiratory Exam: Clear to Ausculation Bilateral, NORMAL BREATHING PATTERN. absent: Rales, Rhonchi, Wheezes - Cardiovascular Exam Cardiovascular Exam: REGULAR RHYTHM, RRR, +S1, +S2 - GI/Abdominal Exam GI & Abdominal Exam: Soft, Normal Bowel Sounds. absent: Tenderness - Extremities Exam Extremities Exam: absent: Calf Tenderness - Neurological Exam Neurological Exam: Alert, Awake, Oriented x3 - Psychiatric Exam Psychiatric exam: Normal Affect, Normal Mood Discharge Plan - Follow Up Plan Condition: GOOD Disposition: HOME/ ROUTINE Instructions: Elbow Fracture (DC), Open Reduction and Internal Fixation Surgery (DC) Additional Instructions: Please follow with Dr. Varghese in 7-10 days, Address: [address] [place] [address] Please follow up with Dr Vasquez on 01/09/18. Please call his office to make an appointment. Referrals: Christophe Varghese III, MD [Staff Provider] - Felix Vasquez MD [Staff Provider] - <Felix Vasquez - Last Filed: 01/07/18 06:57> Provider - Provider Date of Admission: 12/28/17 16:21 Attending physician: Felix Vasquez MD Hospital Course - Lab Results Lab Results: Most Recent Lab Values WBC 9.3 K/uL (4.8-10.8) 01/04/18 05:30 RBC 3.60 Mil/uL (3.80-5.20) L 01/04/18 05:30 Hgb 9.9 g/dL (12.0-16.0) L 01/04/18 05:30 Hct 30.5 % (34.0-47.0) L 01/04/18 05:30 MCV 84.9 fl (81.0-99.0) 01/04/18 05:30 MCH 27.6 pg (27.0-31.0) 01/04/18 05:30 MCHC 32.5 g/dL (33.0-37.0) L 01/04/18 05:30 RDW 15.8 % (11.5-14.5) H 01/04/18 05:30 Plt Count 334 K/uL (130-400) 01/04/18 05:30 MPV 9.2 fl (7.2-11.7) 01/01/18 09:30 Neut % (Auto) 69.0 % (50.0-75.0) 01/01/18 09:30 Lymph % (Auto) 21.8 % (20.0-40.0) 01/01/18 09:30 [place] % (Auto) 4.8 % (0.0-10.0) 01/01/18 09:30 Eos % (Auto) 3.6 % (0.0-4.0) 01/01/18 09:30 Baso % (Auto) 0.8 % (0.0-2.0) 01/01/18 09:30 Neut # (Auto) 5.9 K/uL (1.8-7.0) 01/01/18 09:30 Lymph # (Auto) 1.9 K/uL (1.0-4.3) 01/01/18 09:30 [place] # (Auto) 0.4 K/uL (0.0-0.8) 01/01/18 09:30 Eos # (Auto) 0.3 K/uL (0.0-0.7) 01/01/18 09:30 Baso # (Auto) 0.1 K/uL (0.0-0.2) 01/01/18 09:30 Sodium 141 mmol/l (132-148) 01/04/18 05:30 Potassium 4.5 MMOL/L (3.6-5.0) 01/04/18 05:30 Chloride 100 mmol/L (98-107) 01/04/18 05:30 Carbon Dioxide 29 mmol/L (22-30) 01/04/18 05:30 Anion Gap 17 (10-20) 01/04/18 05:30 BUN 23 mg/dl (7-17) H 01/04/18 05:30 Creatinine 0.8 mg/dl (0.7-1.2) 01/04/18 05:30 Est GFR ( Amer) > 60 01/04/18 05:30 Est GFR (Non-Af Amer) > 60 01/04/18 05:30 Random Glucose 100 mg/dL (65-105) 01/04/18 05:30 Calcium 9.4 mg/dL (8.4-10.2) 01/04/18 05:30 Attending/Attestation - Attestation I have personally seen and examined this patient.: Yes I have fully participated in the care of the patient.: Yes I have reviewed all pertinent clinical information, including history, physical exam and plan: Yes
[2018-01-04 09:48] VITALS: BP 119/60; TEMP 97.7
--- NOTE | 2018-01-04 10:07 | CP.PCM.PN ---
Subjective - Date & Time of Evaluation Date of Evaluation: 01/04/18 Time of Evaluation: 10:05 - Subjective Subjective: Patient states elbow pain is controlled. For d/c home today. Objective - Vital Signs/Intake and Output Vital Signs (last 24 hours): Temp Pulse Resp BP Pulse Ox 97.7 F 76 20 119/60 99 01/04/18 09:00 01/04/18 09:00 01/04/18 09:00 01/04/18 09:00 01/04/18 09:00 - Medications Medications: Current Medications Acetaminophen (Tylenol 325mg Tab) 650 mg PO Q6 PRN PRN Reason: Pain, Mild (1-3) Acetaminophen (Tylenol 325mg Tab) 650 mg PO Q6 PRN PRN Reason: Fever >100.4 F Atorvastatin Calcium (Lipitor) 10 mg PO DAILY@2100 [facility] Last Admin: 01/03/18 20:51 Dose: 10 mg Heparin Sodium (Porcine) (Heparin) 5,000 units SC Q12 [facility] Last Admin: 01/04/18 08:27 Dose: 5,000 units Lidocaine/Prilocaine (Lidocaine/Prilocaine 2.5%-2.5%) 1 applic TP ONCE [facility] Last Admin: 01/01/18 13:00 Dose: 1 applic Ondansetron HCl (Zofran Inj) 4 mg IVP Q6 PRN PRN Reason: Nausea/Vomiting - Labs Labs: 01/04/18 05:30 01/04/18 05:30 - Extremities Exam Additional comments: Right elbow: dressing changed. Incision intact, no erythema, blisters healing well. swelling improving. +ROM fingers/wrist/shoulder, sensationintact +radial pulse. bulky dressing reapplied, splint removed as per Dr. Varghese Assessment and Plan (1) Displaced fracture of olecranon process of right ulna with intra-articular extension Assessment & Plan: POD#8 s/p ORIF right olecranon process ortho stable for d/c home encourage ROM shoulder, sling only for comfort during ambulation and when out of house keep incision clean and dry f/u Dr. Varghese 7-10 days call for appointment d/w Dr. Varghese, agrees with above Status: Acute
[2018-01-04 14:15] VITALS: PULSE 72; O2SAT 98
== END 2018-01-04 12:59 | disposition home or self-care (01) | DRG 561 ==
LOC: H.TCU 16:21
PROVIDERS: ADMIT Family Medicine; ATTEND Family Medicine
PROC: F08Z1FZ Dressing Techniques Treatment using Assistive, Adaptive, Supportive or Protective Equipment (ICD-10-PCS; principal; 2017-12-28)
PROC: F07Z5FZ Bed Mobility Treatment using Assistive, Adaptive, Supportive or Protective Equipment (ICD-10-PCS; 2017-12-28)
PROC: F07Z9ZZ Gait Training/Functional Ambulation Treatment (ICD-10-PCS; 2017-12-28)
PROC: F07Z8ZZ Transfer Training Treatment (ICD-10-PCS; 2017-12-28)
PROC: F07L6FZ Therapeutic Exercise Treatment of Musculoskeletal System - Lower Back / Lower Extremity using Assistive, Adaptive, Supportive or Protective Equipment (ICD-10-PCS; 2017-12-28)
DX: S52.031D Displaced fracture of olecranon process with intraarticular extension of right ulna, subsequent encounter for closed fracture with routine healing (principal); W10.9XXD Fall (on) (from) unspecified stairs and steps, subsequent encounter; Z85.3 Personal history of malignant neoplasm of breast; Z90.11 Acquired absence of right breast and nipple; E78.5 Hyperlipidemia, unspecified; M17.10 Unilateral primary osteoarthritis, unspecified knee

== ENCOUNTER 2018-12-02 08:43 | Emergency (ER) | payer MEDICARE, OTHER ==
[2018-12-02 08:58] VITALS: BMI 30.8
[2018-12-02 09:00] VITALS: BP 176/96; PULSE 103; RESP 17; TEMP 98; O2SAT 96
--- NOTE | 2018-12-02 10:27 | ED PDOC ---
Upper Extremity Pain/Injury Time Seen by Provider: 12/02/18 09:20 Chief Complaint (Nursing): Upper Extremity Problem/Injury History Per: Patient History/Exam Limitations: no limitations Onset/Duration Of Symptoms: Mins Current Symptoms Are (Timing): Still Present Additional Complaint(s): 83 year old female presents to the ED for evaluation of a laceration to left hand, sustained just prior to arrival. Patient states she was cleaning her house, moving a heavy glass object, when it fell and cut her left thumb. She sustained a small cut, applied makeshift dressing to the wound, and ambulated to the ED for evaluation. No other complaints at this time. Tetanus is up to date. PMD: Dr. Vasquez Past Medical History Reviewed: Historical Data, Nursing Documentation, Vital Signs Vital Signs: Last Vital Signs Temp 98 F 12/02/18 08:58 Pulse 103 H 12/02/18 08:58 Resp 17 12/02/18 08:58 BP 176/96 H 12/02/18 08:58 Pulse Ox 96 12/02/18 08:58 - Medical History PMH: Arthritis, Fractures, Hypercholesterolemia Denies: Chronic Kidney Disease - Family History Family History: States: Unknown Family Hx - Home Medications Home Medications: Ambulatory Orders Medication Instructions Recorded Rosuvastatin Calcium [Crestor] 1 tab PO DAILY 07/06/17 Acetaminophen [Tylenol 325mg tab] 650 mg PO Q6 PRN tab 12/28/17 - Allergies Allergies/Adverse Reactions: Allergies Allergy/AdvReac Type Severity Reaction Status Date / Time No Known Allergies Allergy Verified 12/02/18 09:05 Review of Systems ROS Statement: Except As Marked, All Systems Reviewed And Found Negative Constitutional: Negative for: Fever, Weakness Musculoskeletal: Positive for: Hand Pain Skin: Positive for: Lesions (laceration to left thumb) Neurological: Negative for: Weakness, Numbness Physical Exam - Reviewed Nursing Documentation Reviewed: Yes Vital Signs Reviewed: Yes - Physical Exam Appears: Positive for: Well, Non-toxic, No Acute Distress Head Exam: Positive for: ATRAUMATIC, NORMOCEPHALIC Skin: Positive for: Normal Color, Warm Extremity: Positive for: Normal ROM (w/ full rom of digits including left thumb), Other (Superficial 1 cm laceration to the volar aspect of proximal left thumb, no active bleeding). Negative for: Deformity, Swelling (or erythema) Neurological/Psych: Positive for: Awake, Alert, Oriented (x 3). Negative for: Motor/Sensory Deficits - ECG O2 Sat by Pulse Oximetry: 96 Pulse Ox Interpretation: Normal Medical Decision Making Medical Decision Making: Impression: Laceration of left thumb Plan: X-ray of left hand Imaging reviewed: FINDINGS: LEFT THUMB: Normal left thumb, without fracture or focal lesion. Remainder of the left hand (as seen on the AP view) grossly unremarkable. JOINTS: Osteoarthritic change involving proximal and distal interphalangeal joints. SOFT TISSUES: Soft tissue swelling without acute articular or osseous abnormality. No visualized radiopaque foreign body. OTHER FINDINGS: None. IMPRESSION: Soft tissue swelling without acute articular or osseous abnormality. Osteoarthritic changes. Imaging discussed with patient. Wound care provided. Patient is stable for discharge home. Counseling was provided and all questions were answered regarding diagnosis and need for follow up with PMD. There is agreement to discharge plan. Return if symptoms persist or worsen. Scribe Attestation: Documented by Pham Rubio, acting as a scribe for Helio Soria MD. Provider Scribe Attestation: All medical record entries made by the Scribe were at my direction and personally dictated by me. I have reviewed the chart and agree that the record accurately reflects my personal performance of the history, physical exam, medical decision making, and the department course for this patient. I have also personally directed, reviewed, and agree with the discharge instructions and disposition. Disposition - Clinical Impression Clinical Impression: Laceration of left hand - Patient ED Disposition Is Patient to be Admitted: No Counseled Patient/Family Regarding: Studies Performed, Diagnosis, Need For Followup - Disposition Disposition: Routine/Home Disposition Time: 11:10 Condition: STABLE Forms: [facility] ([place]) - POA Present On Arrival: None
--- NOTE | 2018-12-02 11:42 | RAD ---
Date of service: 12/02/2018 PROCEDURE: Left Thumb radiographs. HISTORY: left thumb injury COMPARISON: None. TECHNIQUE: AP radiograph of the left hand, as well as spot oblique and lateral images of thumb were obtained. 4 views obtained. FINDINGS: LEFT THUMB: Normal left thumb, without fracture or focal lesion. Remainder of the left hand (as seen on the AP view) grossly unremarkable. JOINTS: Osteoarthritic change involving proximal and distal interphalangeal joints. SOFT TISSUES: Soft tissue swelling without acute articular or osseous abnormality. No visualized radiopaque foreign body. OTHER FINDINGS: None. IMPRESSION: Soft tissue swelling without acute articular or osseous abnormality. Osteoarthritic changes.
== END 2018-12-02 11:21 | disposition home or self-care (01) ==
LOC: H.ER 08:43
DX: S61.012A Laceration without foreign body of left thumb without damage to nail, initial encounter (principal); W25.XXXA Contact with sharp glass, initial encounter; Y92.89 Other specified places as the place of occurrence of the external cause; E78.00 Pure hypercholesterolemia, unspecified